=== PATIENT | male | born 1935 | race Caucasian/White ===

== ENCOUNTER 2020-04-14 11:04 | Outpatient (REF) | payer MEDICARE, SELFPAY ==
[2020-04-14 12:26] LABS: Prostate Specific Antigen 1.04 ng/mL (<0.05-4.0)
== END 2020-04-14 11:05 | disposition home or self-care (01) ==
LOC: HO.LNP 11:04
PROVIDERS: Visit Provider Urology
DX: C61 Malignant neoplasm of prostate (principal)
CPT/HCPCS: 84153

== ENCOUNTER → 2020-05-16 08:36 | Outpatient (BNVA) | payer MEDICARE, SELFPAY | PROVIDERS: PCP Internal Medicine; Referring Provider Internal Medicine; Visit Provider Urology | DX: C61 Malignant neoplasm of prostate (principal); R97.20 Elevated prostate specific antigen [PSA]; Z12.5 Encounter for screening for malignant neoplasm of prostate; Z98.890 Other specified postprocedural states | CPT/HCPCS: 99212 ==

== ENCOUNTER 2020-06-09 08:35 | Outpatient (REF) | payer MEDICARE, SELFPAY ==
[2020-06-09 11:16] LABS: Prostate Specific Antigen 1.72 ng/mL (<0.05-4.0)
[2020-06-13 11:38] LABS: Testosterone, Total 11 ng/dL (250-1100)
== END 2020-06-09 08:36 | disposition home or self-care (01) ==
LOC: HO.10HDL 08:35
PROVIDERS: Visit Provider Urology
DX: C61 Malignant neoplasm of prostate (principal)
CPT/HCPCS: 84153; 84403

== ENCOUNTER → 2020-07-01 10:30 | Outpatient (BNVA) | payer MEDICARE, SELFPAY | PROVIDERS: PCP Internal Medicine; Visit Provider Urology | DX: R97.21 Rising PSA following treatment for malignant neoplasm of prostate (principal); C61 Malignant neoplasm of prostate; Z79.899 Other long term (current) drug therapy | CPT/HCPCS: 96372; 99212; J9217 ==

== ENCOUNTER 2020-09-08 08:12 | Outpatient (REF) | payer MEDICARE, SELFPAY ==
[2020-09-08 11:56] LABS: Prostate Specific Antigen < 0.05 ng/mL (<0.05-4.0)
== END 2020-09-08 08:13 | disposition home or self-care (01) ==
LOC: HO.10HDL 08:12
PROVIDERS: Visit Provider Urology
DX: R97.21 Rising PSA following treatment for malignant neoplasm of prostate (principal)
CPT/HCPCS: 36415; 84153

== ENCOUNTER → 2020-10-30 10:19 | Outpatient (BNVA) | payer MEDICARE, SELFPAY | PROVIDERS: PCP Internal Medicine; Visit Provider Urology | DX: C61 Malignant neoplasm of prostate (principal); R97.21 Rising PSA following treatment for malignant neoplasm of prostate | CPT/HCPCS: 99212 ==

== ENCOUNTER 2021-01-27 09:23 | Outpatient (REF) | payer MEDICARE, SELFPAY ==
[2021-01-27 10:14] LABS: MANUAL DIFF FLAG NO
[2021-01-27 10:22] LABS: Basophils Percent Auto 0.5 % (0-2); Eosinophils Absolute Auto 0.3 X10*3/uL (0.0-0.4); Eosinophils Percent Auto 4.2 % (0-4); Hemoglobin 13.8 g/dl (14.0-18.0); Imm Gran Abs Auto 0.03 X10*3/uL (0.00-0.03); Imm Gran Pct Auto 0.5 % (0.0-0.4); Lymphocytes Absolute Auto 1.8 X10*3/uL (1.2-4.9); Lymphocytes Percent Auto 28.4 % (20-40); Mean Corpuscular HGB Conc 32.9 g/dl (31.0-36.0); Mean Corpuscular Hemoglobin 30.3 pg (27.0-33.0); Mean Corpuscular Volume 92.3 fL (80-98); Mean Platelet Volume 9.3 fL (9.4-12.4); Monocytes Absolute Auto 0.7 X10*3/uL (0.1-1.2); Monocytes Percent Auto 11.1 % (2-11); Neutrophils Absolute Auto 3.6 X10*3/uL (2.0-8.3); Neutrophils Percent Auto 55.3 % (45-73); Platelet Count 225 X10*3/uL (160-400); Red Blood Count 4.55 X10*6/uL (4.60-5.80); Red Cell Distribution Width 12.5 % (11.0-16.0); White Blood Count 6.5 X10*3/uL (4.8-10.8)
[2021-01-27 10:34] LABS: Estimated Average Glucose 137 mg/dL; Hemoglobin A1c % 6.4 %
[2021-01-27 10:50] LABS: Alanine Aminotransferase 14 U/L (0-40); Albumin Level 4.1 g/dL (3.5-5.0); Alkaline Phosphatase 66 U/L (39-117); Anion Gap 12 (12-20); Aspartate Amino Transferase 19 U/L (5-37); Bilirubin Total 1.7 mg/dL (0.0-1.0); Blood Urea Nitrogen 14 mg/dL (9-16); Calcium 9.7 mg/dL (8.4-10.2); Carbon Dioxide 29 mmol/L (22-29); Chloride 104 mmol/L (96-108); Cholesterol 186 mg/dL; Estimated Glomerular Filt Rate > 60; Glucose Random 99 mg/dL (60-115); Potassium 4.3 mmol/L (3.3-5.1); Sodium 141 mmol/L (135-145); Total Protein 6.9 g/dL (6.5-8.0)
[2021-01-27 11:09] LABS: Prostate Specific Antigen < 0.05 ng/mL (<0.05-4.0)
[2021-01-31 14:22] LABS: Testosterone, Total 10 ng/dL (250-1100)
== END 2021-01-27 09:24 | disposition home or self-care (01) ==
LOC: HO.10HDL 09:23
PROVIDERS: Urology; Visit Provider Internal Medicine
DX: Z12.5 Encounter for screening for malignant neoplasm of prostate (principal); R97.21 Rising PSA following treatment for malignant neoplasm of prostate; I10 Essential (primary) hypertension; E11.9 Type 2 diabetes mellitus without complications; C61 Malignant neoplasm of prostate
CPT/HCPCS: 36415; 80053; 82465; 83036; 84153; 84403; 85025

== ENCOUNTER 2021-02-11 08:39 | Outpatient (REF) | payer MEDICARE, SELFPAY ==
[2021-02-11 11:19] LABS: Prostate Specific Antigen < 0.05 ng/mL (<0.05-4.0)
[2021-02-15 19:55] LABS: Testosterone, Total 10 ng/dL (250-1100)
== END 2021-02-11 08:40 | disposition home or self-care (01) ==
LOC: HO.10HDL 08:39
PROVIDERS: Visit Provider Urology
DX: Z12.5 Encounter for screening for malignant neoplasm of prostate (principal); R97.21 Rising PSA following treatment for malignant neoplasm of prostate
CPT/HCPCS: 36415; 84153; 84403

== ENCOUNTER → 2021-02-27 09:51 | Outpatient (REF) | payer MEDICARE, SELFPAY ==
--- NOTE | ~2021-02-27 | NM_ITS ---
EXAMINATION: NM BONE SCAN OF THE WHOLE BODY CLINICAL INFORMATION: Malignant neoplasm of prostate. COMPARISON: The previous bone scan dated 06/16/2016 is available for comparison. No recent radiographs are available for comparison. TECHNIQUE: Multiple gamma scintillation camera images of the whole body were performed 3 hours following the intravenous administration of 25 mCi Tc-99m MDP. FINDINGS: In the head, no significant abnormalities are present. Slight prominence of the right frontal skull is likely due to hyperostosis frontalis interna. In the thoracic cage and upper extremities, there is moderately increased activity in the right sternoclavicular joint. There is minimally increased activity in the acromioclavicular joints bilaterally and the left sternoclavicular joint. In the spine, a minimal thoracolumbar scoliosis with lumbar convexity to the left is noted. No foci of abnormal activity are present in the spine. In the pelvis, no significant abnormalities are present. In the lower extremities, well-healed bilateral total knee prostheses are noted. Minimally increased activity is present in a small focus in the medial aspect of the right ankle and there is very mildly increased activity in the proximal feet bilaterally. No other definite bony abnormalities are noted. The urinary bladder and faint visualization of both kidneys are noted. NM/NM bone scan whole body IMPRESSION: Prominent abnormality in the right sternoclavicular joint is present and is likely arthritic or traumatic in etiology. Because of the intensity, a solitary metastasis cannot be entirely excluded. Correlation with plain radiographs is recommended for initial follow-up. A few additional minimal nonspecific abnormalities are noted as described above and these are all likely arthritic or traumatic in etiology. None of these abnormalities is strongly suspicious for metastatic disease.
== END ==
LOC: HO.NUCMED 09:51
PROVIDERS: PCP Internal Medicine; Visit Provider Urology
DX: C61 Malignant neoplasm of prostate (principal); C79.51 Secondary malignant neoplasm of bone; R97.21 Rising PSA following treatment for malignant neoplasm of prostate
CPT/HCPCS: 78306; A9503

== ENCOUNTER → 2021-03-12 10:18 | Outpatient (BNVA) | payer MEDICARE, SELFPAY | PROVIDERS: Visit Provider Urology | DX: C61 Malignant neoplasm of prostate (principal); R97.21 Rising PSA following treatment for malignant neoplasm of prostate | CPT/HCPCS: 96402; 99212; J9217 ==

== ENCOUNTER 2021-05-15 08:00 | Outpatient (REF) | payer MEDICARE, SELFPAY ==
[2021-05-15 11:14] LABS: Prostate Specific Antigen < 0.05 ng/mL (<0.05-4.0)
[2021-05-21 13:51] LABS: Testosterone, Total <1 ng/dL (250-1100)
== END 2021-05-15 08:01 | disposition home or self-care (01) ==
LOC: HO.10HDL 08:00
PROVIDERS: Visit Provider Urology
DX: Z12.5 Encounter for screening for malignant neoplasm of prostate (principal); R97.21 Rising PSA following treatment for malignant neoplasm of prostate
CPT/HCPCS: 36415; 84153; 84403

== ENCOUNTER 2021-05-25 07:46 | Outpatient (REF) | payer MEDICARE, SELFPAY ==
[2021-05-25 10:21] LABS: MANUAL DIFF FLAG NO
[2021-05-25 10:27] LABS: Basophils Percent Auto 0.2 % (0-2); Eosinophils Absolute Auto 0.1 X10*3/uL (0.0-0.4); Eosinophils Percent Auto 0.8 % (0-4); Hematocrit 42.3 % (42.0-52.0); Hemoglobin 13.9 g/dl (14.0-18.0); Imm Gran Abs Auto 0.09 X10*3/uL (0.00-0.03); Imm Gran Pct Auto 0.9 % (0.0-0.4); Lymphocytes Absolute Auto 1.7 X10*3/uL (1.2-4.9); Lymphocytes Percent Auto 17.5 % (20-40); Mean Corpuscular HGB Conc 32.9 g/dl (31.0-36.0); Mean Corpuscular Hemoglobin 29.8 pg (27.0-33.0); Mean Corpuscular Volume 90.8 fL (80.0-98.0); Mean Platelet Volume 9.6 fL (9.4-12.4); Monocytes Percent Auto 9.9 % (2-11); Neutrophils Percent Auto 70.7 % (45-73); Platelet Count 256 X10*3/uL (160-400); Red Blood Count 4.66 X10*6/uL (4.60-5.80); Red Cell Distribution Width 12.3 % (11.0-16.0); White Blood Count 9.9 X10*3/uL (4.8-10.8)
[2021-05-25 11:01] LABS: Estimated Average Glucose 140 mg/dL; Hemoglobin A1c % 6.5 %
[2021-05-25 11:05] LABS: Alanine Aminotransferase 13 U/L (0-40); Albumin Level 3.9 g/dL (3.5-5.0); Alkaline Phosphatase 66 U/L (39-117); Anion Gap 11 (12-20); Aspartate Amino Transferase 12 U/L (5-37); Bilirubin Total 1.4 mg/dL (0.0-1.0); Blood Urea Nitrogen 19 mg/dL (9-16); Calcium 8.7 mg/dL (8.4-10.2); Carbon Dioxide 26 mmol/L (22-29); Chloride 105 mmol/L (96-108); Cholesterol 145 mg/dL; Estimated Glomerular Filt Rate > 60; Glucose Fasting 100 mg/dL (60-99); HDL Cholesterol 49 mg/dL; LDL Cholesterol Calculated 77 mg/dl; Potassium 4.2 mmol/L (3.3-5.1); Sodium 138 mmol/L (135-145); Total Protein 6.4 g/dL (6.5-8.0); Triglycerides 97 mg/dL
[2021-05-25 11:07] LABS: Creatinine Urine 84.89 mg/dL; Microalbum/Creatinine Ratio Ur 11.7 ug/mg cr
== END 2021-05-25 07:47 | disposition home or self-care (01) ==
LOC: HO.10HDL 07:46
PROVIDERS: Visit Provider Internal Medicine
DX: E11.9 Type 2 diabetes mellitus without complications (principal); I10 Essential (primary) hypertension; C61 Malignant neoplasm of prostate
CPT/HCPCS: 36415; 80053; 80061; 82043; 83036; 85025

== ENCOUNTER → 2021-06-17 08:43 | Outpatient (BNVA) | payer MEDICARE, SELFPAY | PROVIDERS: PCP Internal Medicine; Visit Provider Urology | DX: R97.21 Rising PSA following treatment for malignant neoplasm of prostate (principal); C61 Malignant neoplasm of prostate | CPT/HCPCS: Q3014 ==

== ENCOUNTER 2021-09-15 08:01 | Outpatient (REF) | payer MEDICARE, SELFPAY ==
--- NOTE | ~2021-09-15 | MM_ITS ---
EXAMINATION: BONE DENSITOMETRY CLINICAL INDICATION: Osteopenia. COMPARISON: This is the patient's baseline examination. TECHNIQUE: Using a [employer] DXA System (software version: 13.1) manufactured by [employer], dual-energy x-ray absorptiometry was performed of the lumbar spine and left hip. The images are of good technical quality. Summary results are attached. FINDINGS: AP SPINE L1-L4: BMD 1.059 g/cm2, Z-score -1.3, T-score -1.3, osteopenia. LEFT FEMUR, NECK: BMD 0.657 g/cm2, Z-score -1.9, T-score -3.2, osteoporosis. LEFT FEMUR, TOTAL: BMD 0.728 g/cm2, Z-score -1.6, T-score -2.6, osteoporosis. IDENTIFIED RISK FACTORS: Glucocorticoids (chronic). HISTORY OF FRACTURE: None listed. MEDICATIONS: None listed. MM/XR DEXA axial skeleton IMPRESSION: 1. DIAGNOSIS: Osteoporosis based on the lowest T-score value of -3.2 in the femoral neck applying World Health Organization criteria. 2. 10-YEAR FRACTURE RISK PREDICTION, FRAX: According to the guidelines, FRAX calculation should only be performed on patients in the osteopenia bone density category. Therefore, FRAX was not performed on this patient. 3. Treatment Recommendations: NOF guidelines recommend consideration for treatment in postmenopausal women and men age 50 and older presenting with the following: -A hip or vertebral (clinical or morphometric) fracture. -T-score less than or equal to -2.5 at the femoral neck or spine after appropriate evaluation to exclude secondary causes. -Low bone mass at the hip or spine and a 10-year fracture probability by FRAX of greater than or equal to 3% for hip fracture or greater than or equal to 20% for major osteoporotic fracture based on the [place] adapted WHO algorithm. 4. Other Recommendations: All treatment decisions require clinical judgment and consideration of individual patient factors, including patient preferences, comorbidities, previous drug use, risk factors not captured in the FRAX model (e.g. frailty, falls, vitamin D deficiency, increased bone turnover, interval significant decline in bone density) and possible under or overestimation of fracture risk by FRAX. Additional medical evaluation for secondary cause of low bone mineral density may be appropriate. FUTURE SCAN RECOMMENDATION: People with diagnosed cases of osteoporosis or at high risk for fracture should have regular bone mineral density tests. For patients eligible for Medicare, routine testing is allowed once every 2 years. The testing frequency can be increased to one year for patients who have rapidly progressing disease, those who are receiving or discontinuing medical therapy to restore bone mass, or have additional risk factors.
== END 2021-09-15 08:02 | disposition home or self-care (01) ==
LOC: HO.MAMMO 08:01
PROVIDERS: Visit Provider Urology
DX: Z13.820 Encounter for screening for osteoporosis (principal); M85.80 Other specified disorders of bone density and structure, unspecified site; M81.0 Age-related osteoporosis without current pathological fracture; R97.21 Rising PSA following treatment for malignant neoplasm of prostate; E27.49 Other adrenocortical insufficiency
CPT/HCPCS: 77080

== ENCOUNTER 2021-09-21 07:46 | Outpatient (REF) | payer MEDICARE, SELFPAY ==
[2021-09-21 11:28] LABS: Prostate Specific Antigen < 0.05 ng/mL (<0.05-4.0)
[2021-09-27 09:27] LABS: Testosterone, Total <1 ng/dL (250-1100)
== END 2021-09-21 07:47 | disposition home or self-care (01) ==
LOC: HO.10HDL 07:46
PROVIDERS: Visit Provider Urology
DX: Z12.5 Encounter for screening for malignant neoplasm of prostate (principal); R97.21 Rising PSA following treatment for malignant neoplasm of prostate
CPT/HCPCS: 36415; 84153; 84403

== ENCOUNTER → 2021-10-08 10:08 | Outpatient (BNVA) | payer MEDICARE, SELFPAY | PROVIDERS: PCP Internal Medicine; Visit Provider Urology | DX: C61 Malignant neoplasm of prostate (principal) | CPT/HCPCS: 96372; 96402; 99212; J0897; J9217 ==

== ENCOUNTER 2021-11-23 12:23 | Outpatient (REF) | payer MEDICARE, SELFPAY ==
[2021-11-23 13:33] LABS: MANUAL DIFF FLAG NO
[2021-11-23 13:35] LABS: Basophils Percent Auto 0.4 % (0-2); Eosinophils Absolute Auto 0.1 X10*3/uL (0.0-0.4); Eosinophils Percent Auto 1.4 % (0-4); Hematocrit 40.6 % (42.0-52.0); Hemoglobin 13.1 g/dl (14.0-18.0); Imm Gran Abs Auto 0.05 X10*3/uL (0.00-0.03); Imm Gran Pct Auto 0.6 % (0.0-0.4); Lymphocytes Absolute Auto 1.6 X10*3/uL (1.2-4.9); Lymphocytes Percent Auto 18.4 % (20-40); Mean Corpuscular HGB Conc 32.3 g/dl (31.0-36.0); Mean Corpuscular Hemoglobin 30.4 pg (27.0-33.0); Mean Corpuscular Volume 94.2 fL (80.0-98.0); Mean Platelet Volume 9.8 fL (9.4-12.4); Monocytes Absolute Auto 0.7 X10*3/uL (0.1-1.2); Monocytes Percent Auto 7.9 % (2-11); Neutrophils Absolute Auto 6.1 x10*3/uL (2.0-8.3); Neutrophils Percent Auto 71.3 % (45-73); Platelet Count 207 X10*3/uL (160-400); Red Blood Count 4.31 X10*6/uL (4.60-5.80); Red Cell Distribution Width 12.9 % (11.0-16.0); White Blood Count 8.5 X10*3/uL (4.8-10.8)
[2021-11-23 14:11] LABS: Alanine Aminotransferase 15 U/L (0-40); Albumin Level 3.9 g/dL (3.5-5.0); Alkaline Phosphatase 48 U/L (39-117); Anion Gap 13 (12-20); Aspartate Amino Transferase 14 U/L (5-37); Bilirubin Total 2.3 mg/dL (0.0-1.0); Blood Urea Nitrogen 14 mg/dL (9-16); Calcium 9.2 mg/dL (8.4-10.2); Carbon Dioxide 28 mmol/L (22-29); Chloride 105 mmol/L (96-108); Estimated Glomerular Filt Rate > 60; Glucose Random 134 mg/dL (60-115); Magnesium 2.1 mg/dL (1.6-2.6); Potassium 4.4 mmol/L (3.3-5.1); Sodium 142 mmol/L (135-145); Total Protein 6.7 g/dL (6.5-8.0)
[2021-11-23 14:17] LABS: Free T4 (Free Thyroxine) 0.93 ng/dL (0.71-1.85); Thyroid Stimulating Hormone 0.44 uIU/mL (0.32-4.0)
[2021-11-24 09:57] LABS: Lyme Abs Screen <0.90 index
== END 2021-11-23 12:24 | disposition home or self-care (01) ==
LOC: HO.10HDL 12:23
PROVIDERS: Visit Provider Internal Medicine
DX: I48.91 Unspecified atrial fibrillation (principal); I10 Essential (primary) hypertension; T14.8XXD Other injury of unspecified body region, subsequent encounter; W57.XXXD Bitten or stung by nonvenomous insect and other nonvenomous arthropods, subsequent encounter
CPT/HCPCS: 36415; 80053; 83735; 84439; 84443; 85025; 86617; 86618

== ENCOUNTER 2021-12-29 08:14 | Outpatient (REF) | payer MEDICARE, SELFPAY ==
[2021-12-29 10:02] LABS: Prostate Specific Antigen < 0.05 ng/mL (<0.05-4.0)
[2022-01-05 09:52] LABS: Testosterone, Total <1 ng/dL (250-1100)
== END 2021-12-29 08:15 | disposition home or self-care (01) ==
LOC: HO.10HDL 08:14
PROVIDERS: Visit Provider Urology
DX: Z12.5 Encounter for screening for malignant neoplasm of prostate (principal); C61 Malignant neoplasm of prostate; N40.1 Benign prostatic hyperplasia with lower urinary tract symptoms; N13.8 Other obstructive and reflux uropathy
CPT/HCPCS: 36415; 84153; 84403

== ENCOUNTER → 2022-01-07 10:07 | Outpatient (BNVA) | payer MEDICARE, SELFPAY | PROVIDERS: PCP Internal Medicine; Visit Provider Urology | DX: C61 Malignant neoplasm of prostate (principal); R97.21 Rising PSA following treatment for malignant neoplasm of prostate; E29.1 Testicular hypofunction; M81.8 Other osteoporosis without current pathological fracture; T38.7X5A Adverse effect of androgens and anabolic congeners, initial encounter | CPT/HCPCS: 99212 ==

== ENCOUNTER 2022-03-17 09:33 | Outpatient (REF) | payer MEDICARE, SELFPAY ==
[2022-03-17 11:56] LABS: Prostate Specific Antigen < 0.05 ng/mL (<0.05-4.0)
[2022-03-24 07:16] LABS: Testosterone, Total <1 ng/dL (250-1100)
== END 2022-03-17 09:34 | disposition home or self-care (01) ==
LOC: HO.10HDL 09:33
PROVIDERS: Visit Provider Urology
DX: Z12.5 Encounter for screening for malignant neoplasm of prostate (principal); E29.1 Testicular hypofunction; T38.7X5A Adverse effect of androgens and anabolic congeners, initial encounter; M81.8 Other osteoporosis without current pathological fracture
CPT/HCPCS: 36415; 84153; 84403

== ENCOUNTER → 2022-04-06 08:34 | Outpatient (BNVA) | payer MEDICARE, SELFPAY | PROVIDERS: PCP Internal Medicine; Referring Provider Internal Medicine; Visit Provider Internal Medicine | DX: I48.19 Other persistent atrial fibrillation (principal); I10 Essential (primary) hypertension; R29.6 Repeated falls | CPT/HCPCS: 93005; 99202 ==

== ENCOUNTER 2022-04-12 08:26 | Outpatient (REF) | payer MEDICARE, SELFPAY ==
[2022-04-12 10:57] LABS: Estimated Average Glucose 151 mg/dL; Hemoglobin A1c % 6.9 %
[2022-04-12 11:06] LABS: Alanine Aminotransferase 12 U/L (0-40); Albumin Level 4.1 g/dL (3.5-5.0); Alkaline Phosphatase 66 U/L (39-117); Anion Gap 14 (12-20); Aspartate Amino Transferase 10 U/L (5-37); Bilirubin Total 2.1 mg/dL (0.0-1.0); Blood Urea Nitrogen 19 mg/dL (9-16); Calcium 9.2 mg/dL (8.4-10.2); Carbon Dioxide 28 mmol/L (22-29); Chloride 102 mmol/L (96-108); Estimated Glomerular Filt Rate > 60; Glucose Random 208 mg/dL (60-115); Potassium 4.4 mmol/L (3.3-5.1); Sodium 140 mmol/L (135-145); Total Protein 6.4 g/dL (6.5-8.0)
[2022-04-12 11:13] LABS: B Type Natriuretic Peptide 123 pg/mL (<100)
== END 2022-04-12 08:27 | disposition home or self-care (01) ==
LOC: HO.10HDL 08:26
PROVIDERS: Visit Provider Internal Medicine
DX: I48.91 Unspecified atrial fibrillation (principal); R60.0 Localized edema; I10 Essential (primary) hypertension; R73.9 Hyperglycemia, unspecified; R06.00 Dyspnea, unspecified
CPT/HCPCS: 36415; 80053; 83036; 83880

== ENCOUNTER → 2022-04-13 08:48 | Outpatient (BNVA) | payer MEDICARE, SELFPAY | PROVIDERS: PCP Internal Medicine; Visit Provider Urology | DX: C61 Malignant neoplasm of prostate (principal); M81.8 Other osteoporosis without current pathological fracture; T38.7X5A Adverse effect of androgens and anabolic congeners, initial encounter | CPT/HCPCS: 96372; 96402; J0897; J9217 ==

== ENCOUNTER 2022-04-25 03:20 | Inpatient (IN) | payer MEDICARE, SELFPAY ==
[2022-04-25] VITALS (9 sets, daily range): BP systolic 108–138; BP diastolic 55–70; PULSE 82–109; RESP 16–38; TEMP 36.6–37.6; O2SAT 90–97; BMI 37.1
--- NOTE | ~2022-04-25 | XR_ITS ---
EXAMINATION: XR CHEST CLINICAL INFORMATION: Dyspnea COMPARISON: 09/21/2011 TECHNIQUE: Frontal view of the chest was obtained. FINDINGS: Lung volumes are symmetric. No focal consolidation is seen. No evidence of pneumothorax. Redemonstrated left basilar pleural thickening; small superimposed effusion is difficult to exclude. Cardiac size is within normal limits. Calcification is present at the aortic arch. No acute osseous findings are seen. XR/XR chest 1V IMPRESSION: No focal consolidation identified. Small left pleural effusion is difficult to exclude.
--- NOTE | ~2022-04-25 | US_ITS ---
EXAMINATION: BILATERAL LOWER EXTREMITY VENOUS ULTRASOUND CLINICAL INFORMATION: Bilateral leg pain and swelling. COMPARISON: None TECHNIQUE: Doppler spectral analysis and color flow Doppler imaging was performed of the lower extremities. Compression and augmentation maneuvers were performed. FINDINGS: The right and left common femoral vein, greater saphenous vein takeoff, femoral vein, and popliteal vein are normally compressible with normal augmentation responses and phasic changes seen with Doppler imaging. 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 The midcalf peroneal and posterior tibial veins in the right calf and the posterior tibial veins in the left calf are patent as well. The peroneal veins in the left calf are not seen given extensive soft tissue edema. There is a complex 3.8 x 1.1 x 2.6 cm fluid collection with associated curvilinear echogenic shadowing calcification, perhaps representing a chronic partially calcified popliteal cyst. Color Doppler imaging, no color flow is demonstrated within this structure and no obvious communication to vessels is demonstrated to suspect an aneurysm. There is also complex appearing 5.2 x 1 x 3.5 cm collection in the left popliteal fossa, likely a popliteal cyst. US/US venous duplex LE IMPRESSION: 1. No evidence of deep venous thrombosis in the right lower extremity. 2. No evidence of deep venous fibrosis in the left lower extremity down to the popliteal level. In the calf, the peroneal veins could not be seen. Depending on clinical circumstances, repeat DVT study in 7-10 days could be performed to exclude proximal clot propagation from a nonvisualized calf vein. 3. Bilateral complex appearing fluid collections are seen in the popliteal fossa, presumably representing popliteal cysts. The finding in the right popliteal fossa has associated curvilinear shadowing calcification. Close clinical correlation is requested.
--- NOTE | ~2022-04-25 | CT_ITS ---
EXAMINATION: CT ABDOMEN AND PELVIS WITHOUT CONTRAST CLINICAL INFORMATION: Portal hypertension . COMPARISON: None TECHNIQUE: Multidetector volumetric imaging was performed from the superior aspect of the liver through the pubic symphysis. Sagittal and coronal reformatted images were obtained on the technologist's workstation. This CT examination was performed using dose optimization techniques as appropriate, variously including the following: *Automated exposure control *Adjustment of mA and/or kV according to patient size (this includes techniques or standardized protocols for targeted exams where dose is matched to indication/reason for exam; i.e. extremities or head) *Use of iterative reconstruction technique DLP: 796 mGy-cm FINDINGS: LUNG BASES: Minimal atelectatic changes seen in the left lung base. The heart size is normal. LIVER, GALLBLADDER, AND BILIARY TREE: The liver is normal in size, shape, and attenuation. There is a hypodense 1.2 cm lesion left hepatic lobe. The gallbladder is unremarkable with no evidence of radiopaque gallstones, gallbladder wall thickening, or obvious pericholecystic inflammatory changes. PANCREAS: Unremarkable. SPLEEN: Unremarkable. ADRENAL GLANDS: Unremarkable. KIDNEYS AND URETERS: The kidneys are normal in size, shape, and attenuation. No hydronephrosis, hydroureter, or calculi seen. No perinephric stranding. BLADDER: Unremarkable. GASTROINTESTINAL TRACT: The small and large bowel are unremarkable. The appendix is unremarkable. ABDOMINAL WALL: No significant hernia is appreciated. LYMPH NODES: Normal. VASCULAR: Mild undistorted changes of abdominal aorta without aneurysmal dilatation. No varicose veins are visualized. PELVIC VISCERA: The prostate gland is normal size with peripheral calcification. OSSEOUS STRUCTURES: Degenerative disc changes throughout lower dorsal and lumbar spine sparing the L5-S1 disc level. No aggressive lytic or sclerotic process seen. CT/CT abdomen pelvis wo IV con IMPRESSION: No acute intra-abdominal process seen. No varicosities seen in the abdomen to suspect any elevated portal hypertension. Probable cyst left hepatic lobe. Fleischner guidelines were followed.
--- NOTE | 2022-04-25 03:38 | ECG_ITS ---
Test Reason : dyspnea Blood Pressure : / mmHG Vent. Rate : 104 BPM Atrial Rate : 000 BPM P-R Int : 000 ms QRS Dur : 094 ms QT Int : 312 ms P-R-T Axes : 000 024 -14 degrees QTc Int : 410 ms Atrial fibrillation with rapid ventricular response with premature ventricular or aberrantly conducted complexes RSR' or QR pattern in V1 suggests right ventricular conduction delay Abnormal ECG When compared with ECG of 18-OCT-2014 12:34, Atrial fibrillation has replaced Sinus rhythm Referred By: Dulce Gudino Electronically Signed By:KAREN FLOREZ MD
--- NOTE | 2022-04-25 03:40 | ED_ITS ---
HPI - Extremity Problem General Chief complaint: General Medical Stated complaint: leg swelling Time Seen by Provider: 04/25/22 03:21 Source: patient Mode of arrival: EMS Limitations: other (poor historian) History of Present Illness HPI Narrative: 87 yo male from home with hx of PAF not on thinners due to frequent falls, HTN, prostate cancer, here with c/o 2 weeks of leg swelling which is now making it hard for him to get around. Patient is not on diuretic at home. Right leg is now reddened and hot to touch. He saw cardiology on 04/06 and had outpatient ECHO pending last ECHO was in January at [facility] due to syncope but it was technically difficult and suboptimal so it only stated that LVEF was mildly reduced. He notes his legs have never swelled this way before. MD Complaint: extremity pain and extremity swelling Onset (ago): week(s) (2) Location: left, right and lower extremity Quality: aching, dull and constant Radiation: none Relieving factors: immobilization Exacerbating factors: weight bearing, walking and palpation Associated symptoms: denies other symptoms Related Data Home Medications Medication Instructions Recorded Confirmed losartan 50 mg tablet 50 mg PO DAILY 05/16/20 04/06/22 aspirin 81 mg tablet,delayed 81 mg PO DAILY 04/06/22 04/06/22 release Previous Rx's Medication Instructions Recorded abiraterone 500 mg tablet 500 mg PO DAILY 90 days #90 tabs 11/17/21 finasteride 5 mg tablet 5 mg PO DAILY #90 tabs 12/17/21 calcium citrate 315 mg 2 tab PO BID 90 days #360 tabs 01/07/22 calcium-vitamin D3 6.25 mcg (250 unit) tablet (Citracal + Vitamin D Maximum) prednisone 5 mg tablet 5 mg PO BID 90 days #180 tabs 04/22/22 Allergies Allergy/AdvReac Type Severity Reaction Status Date / Time No Known Allergies Allergy Verified 04/06/22 08:55 [No Known Allergies*] Review of Systems Review of Systems: Constitutional : No Fever, No Chills ENT/Mouth : No Ear Pain, No Hoarseness, No sore throat Eyes: No Eye Pain, No Swelling, No Redness, No Foreign Body Cardiovascular : No Chest Pain, No SOB, pos edema Respiratory : No Cough, No Dyspnea Gastrointestinal : No Nausea, No Vomiting, No Diarrhea, No abdominal Pain Genitourinary : No Dysuria, No Hematuria Musculoskeletal : no joint pain, No Myalgias, No Joint Swelling Skin : No Skin lacerations, pos rash, pos weeping lesions Neuro : No Weakness, No Numbness, No Loss of Consciousness, No Dizziness, No Headache Psych : No Anxiety/Panic, No Depression Heme/Lymph: no easy bruising, no Lymphadenopathy Endocrine : No Polyuria, No Polydipsia All other systems reviewed and are negative [facility] Past Medical History Attestation statement: The following information was validated with the patient. Medical History Basal cell carcinoma Elevated blood pressure reading Essential hypertension Hx of bladder cancer Prostate cancer Recurrent falls Skin lesion of back Urethral stricture Surgical History History of knee replacement History of surgery Family History Family History (Updated 04/06/22 @ 08:56 by Isamar Ignacio [facility]) Father No problems noted. Mother No problems noted. Social History Social History Patient Tobacco Use Status: Never used Tobacco Advance Directives: No Physical Exam Vital Signs: Vital Signs: Last Vital Signs Temp 98.4 F 04/25/22 05:51 Pulse 100 04/25/22 05:51 Resp 35 H 04/25/22 05:51 BP 122/57 L 04/25/22 05:51 Pulse Ox 94 04/25/22 05:51 O2 Del Method 04/25/22 05:51 BMI result Body Mass Index 37.1 Appearance: Alert. Oriented X3. No acute distress. Eyes: Pupils equal, round and reactive to light. ENT: Pharynx normal. Neck: Normal inspection. Neck supple. CVS: tachycardic/irregular heart rate and rhythm. Pulses normal. Respiratory: No respiratory distress. Breath sounds diminished at the bases. Abdomen: Soft and non-tender. Skin: Skin warm and dry. Normal skin color. Extremities: 3+ pitting edema bilateral lower extremities. warmth and erythema to R leg anteriorly and medially on leg, weeping lesions noted on inner aspect of medical calf Neuro: Oriented X 3. No motor deficit. No sensory deficit. Course Course Course Narrative: signed out to Dr. Lin pending DVT studies but hospitalist made aware of pending admission as well 710am MDM - Extremity (Nontraumatic) MDM Narrative Medical decision making narrative: 87 yo male from home with hx of PAF not on thinners due to frequent falls, HTN, prostate cancer comes to ED with c/o LE swelling and redness to right leg - it is warm to touch and red appears cellulitis likely infected weeping lesion on top of venous stasis dermatitis. He has LE swelling suspected low EF from prior ECHO back in January he was due for ECHO through [facility] cardiology. Will need labs, CXR, EKG, BNP. Anticipate admission. DVT studies ordered. Lab Data Result diagrams: 04/25/22 04:12 04/25/22 04:11 Labs: Lab Results 04/25/22 04/25/22 04/25/22 Range/Units 04:11 04:11 04:11 WBC (4.8-10.8) X10*3/uL RBC (4.60-5.80) X10*6/uL Hgb (14.0-18.0) g/dl Hct (42.0-52.0) % MCV (80.0-98.0) fL MCH (27.0-33.0) pg MCHC (31.0-36.0) g/dl RDW (11.0-16.0) % Plt Count (160-400) X10*3/uL MPV (9.4-12.4) fL Immature Gran % (Auto) (0.0-0.4) % Neut % (Auto) (45-73) % Lymph % (Auto) (20-40) % [place] % (Auto) (2-11) % Eos % (Auto) (0-4) % Baso % (Auto) (0-2) % Lymph # (Auto) (1.2-4.9) X10*3/uL [place] # (Auto) (0.1-1.2) X10*3/uL Eos # (Auto) (0.0-0.4) X10*3/uL Baso # (Auto) (0.0-0.2) X10*3/uL Abs Immat Gran (auto) (0.00-0.03) X10*3/uL Absolute Neuts (auto) (2.0-8.3) x10*3/uL Absolute Nucleated RBC (0.0-0.012) X10*3/uL Nucleated RBC % (auto) (0.0-0.2) /100WBC PT (10.0-13.1) SEC INR (0.9-1.1) APTT (26.0-36.4) SEC Sodium 134 L (135-145) mmol/L Potassium 3.8 (3.3-5.1) mmol/L Chloride 96 (96-108) mmol/L Carbon Dioxide 25 (22-29) mmol/L Anion Gap 17 (12-20) BUN 23 H (9-16) mg/dL Creatinine 1.02 (0.5-1.4) mg/dL Estim Creat Clear Calc 57.7 Estimated GFR > 60 Random Glucose 154 H (60-115) mg/dL Lactic Acid 2.0 (0.5-2.0) mmol/L Calcium 8.6 D (8.4-10.2) mg/dL Magnesium 1.7 (1.6-2.6) mg/dL Total Bilirubin 2.5 H (0.0-1.0) mg/dL Direct Bilirubin 0.6 H (0.0-0.5) mg/dL AST 14 (5-37) U/L ALT 10 (0-40) U/L Alkaline Phosphatase 50 D (39-117) U/L Troponin I High Sens (<3.5-35.0) ng/L B-Natriuretic Peptide (<100) pg/mL Total Protein 5.8 L (6.5-8.0) g/dL Albumin 3.6 (3.5-5.0) g/dL Lipase 7 L (8-78) U/L TSH 0.59 (0.32-4.0) uIU/mL Urine Color Urine Appearance Urine pH (5.0-9.0) Ur Specific [place] (1.005-1.025) Urine Protein (Neg-Trace) mg/dL Urine Glucose (UA) (Negative) mg/dL Urine Ketones (Negative) mg/dL Urine Blood (Negative) Urine Nitrite (Negative) Ur Leukocyte Esterase (Negative) Urine RBC (0-2) /HPF Urine WBC (0-5) /HPF Ur Squamous Epith Cells (0-2) /HPF Urine Bacteria (None Seen) Hyaline Casts (0-2) /LPF COVID-19 ([facility]) Negative (Negative) COVID-19 Clin Com See Note 04/25/22 04/25/22 04/25/22 Range/Units 04:12 04:12 04:12 WBC 14.8 H (4.8-10.8) X10*3/uL RBC 4.69 (4.60-5.80) X10*6/uL Hgb 13.7 L (14.0-18.0) g/dl Hct 42.7 (42.0-52.0) % MCV 91.0 (80.0-98.0) fL MCH 29.2 (27.0-33.0) pg MCHC 32.1 (31.0-36.0) g/dl RDW 13.5 (11.0-16.0) % Plt Count 145 L D (160-400) X10*3/uL MPV 8.9 L (9.4-12.4) fL Immature Gran % (Auto) 0.8 H (0.0-0.4) % Neut % (Auto) 88.7 H (45-73) % Lymph % (Auto) 5.1 L (20-40) % [place] % (Auto) 4.9 (2-11) % Eos % (Auto) 0.2 (0-4) % Baso % (Auto) 0.3 (0-2) % Lymph # (Auto) 0.8 L (1.2-4.9) X10*3/uL [place] # (Auto) 0.7 (0.1-1.2) X10*3/uL Eos # (Auto) 0.0 (0.0-0.4) X10*3/uL Baso # (Auto) 0.0 (0.0-0.2) X10*3/uL Abs Immat Gran (auto) 0.12 H (0.00-0.03) X10*3/uL Absolute Neuts (auto) 13.1 H (2.0-8.3) x10*3/uL Absolute Nucleated RBC 0.000 (0.0-0.012) X10*3/uL Nucleated RBC % (auto) 0.0 (0.0-0.2) /100WBC PT 16.9 H (10.0-13.1) SEC INR 1.5 H (0.9-1.1) APTT 31.4 (26.0-36.4) SEC Sodium (135-145) mmol/L Potassium (3.3-5.1) mmol/L Chloride (96-108) mmol/L Carbon Dioxide (22-29) mmol/L Anion Gap (12-20) BUN (9-16) mg/dL Creatinine (0.5-1.4) mg/dL Estim Creat Clear Calc Estimated GFR Random Glucose (60-115) mg/dL Lactic Acid (0.5-2.0) mmol/L Calcium (8.4-10.2) mg/dL Magnesium (1.6-2.6) mg/dL Total Bilirubin (0.0-1.0) mg/dL Direct Bilirubin (0.0-0.5) mg/dL AST (5-37) U/L ALT (0-40) U/L Alkaline Phosphatase (39-117) U/L Troponin I High Sens 23.4 (<3.5-35.0) ng/L B-Natriuretic Peptide 135 H (<100) pg/mL Total Protein (6.5-8.0) g/dL Albumin (3.5-5.0) g/dL Lipase (8-78) U/L TSH (0.32-4.0) uIU/mL Urine Color Urine Appearance Urine pH (5.0-9.0) Ur Specific [place] (1.005-1.025) Urine Protein (Neg-Trace) mg/dL Urine Glucose (UA) (Negative) mg/dL Urine Ketones (Negative) mg/dL Urine Blood (Negative) Urine Nitrite (Negative) Ur Leukocyte Esterase (Negative) Urine RBC (0-2) /HPF Urine WBC (0-5) /HPF Ur Squamous Epith Cells (0-2) /HPF Urine Bacteria (None Seen) Hyaline Casts (0-2) /LPF COVID-19 ([facility]) (Negative) COVID-19 Clin Com 04/25/22 Range/Units 05:55 WBC (4.8-10.8) X10*3/uL RBC (4.60-5.80) X10*6/uL Hgb (14.0-18.0) g/dl Hct (42.0-52.0) % MCV (80.0-98.0) fL MCH (27.0-33.0) pg MCHC (31.0-36.0) g/dl RDW (11.0-16.0) % Plt Count (160-400) X10*3/uL MPV (9.4-12.4) fL Immature Gran % (Auto) (0.0-0.4) % Neut % (Auto) (45-73) % Lymph % (Auto) (20-40) % [place] % (Auto) (2-11) % Eos % (Auto) (0-4) % Baso % (Auto) (0-2) % Lymph # (Auto) (1.2-4.9) X10*3/uL [place] # (Auto) (0.1-1.2) X10*3/uL Eos # (Auto) (0.0-0.4) X10*3/uL Baso # (Auto) (0.0-0.2) X10*3/uL Abs Immat Gran (auto) (0.00-0.03) X10*3/uL Absolute Neuts (auto) (2.0-8.3) x10*3/uL Absolute Nucleated RBC (0.0-0.012) X10*3/uL Nucleated RBC % (auto) (0.0-0.2) /100WBC PT (10.0-13.1) SEC INR (0.9-1.1) APTT (26.0-36.4) SEC Sodium (135-145) mmol/L Potassium (3.3-5.1) mmol/L Chloride (96-108) mmol/L Carbon Dioxide (22-29) mmol/L Anion Gap (12-20) BUN (9-16) mg/dL Creatinine (0.5-1.4) mg/dL Estim Creat Clear Calc Estimated GFR Random Glucose (60-115) mg/dL Lactic Acid (0.5-2.0) mmol/L Calcium (8.4-10.2) mg/dL Magnesium (1.6-2.6) mg/dL Total Bilirubin (0.0-1.0) mg/dL Direct Bilirubin (0.0-0.5) mg/dL AST (5-37) U/L ALT (0-40) U/L Alkaline Phosphatase (39-117) U/L Troponin I High Sens (<3.5-35.0) ng/L B-Natriuretic Peptide (<100) pg/mL Total Protein (6.5-8.0) g/dL Albumin (3.5-5.0) g/dL Lipase (8-78) U/L TSH (0.32-4.0) uIU/mL Urine Color Yellow Urine Appearance Clear Urine pH 5.5 (5.0-9.0) Ur Specific [place] 1.015 (1.005-1.025) Urine Protein 30 (1+) H (Neg-Trace) mg/dL Urine Glucose (UA) Negative (Negative) mg/dL Urine Ketones Trace (Negative) mg/dL Urine Blood Negative (Negative) Urine Nitrite Negative (Negative) Ur Leukocyte Esterase Negative (Negative) Urine RBC 0-2 (0-2) /HPF Urine WBC 0-5 (0-5) /HPF Ur Squamous Epith Cells 0-2 (0-2) /HPF Urine Bacteria None Seen (None Seen) Hyaline Casts 0-2 (0-2) /LPF COVID-19 ([facility]) (Negative) COVID-19 Clin Com ECG Data Attestation EKG: I personally reviewed and interpreted this ECG as follows: ECG interpretation date: 04/25/22 ECG interpretation time: 04:20 Interpretation: Rate: 104 Rhythm: afib with RVR [place]: normal Normal QRS complex. ST T wave : nonspecific no TESSA, flattened t waves qTC: normal prior studies: no acute ischemia The study has been interpreted contemporaneously by me. Discharge Plan Discharge Clinical Impression: Leg edema Cellulitis Qualifiers: Site of cellulitis: extremity Site of cellulitis of extremity: lower extremity Laterality: right Qualified Code(s): L03.115 - Cellulitis of right lower limb Leukocytosis Qualifiers: Leukocytosis type: unspecified Qualified Code(s): D72.829 - Elevated white blood cell count, unspecified Patient Disposition: Admitted As Inpatient
[2022-04-25 04:21] LABS: Basophils Percent Auto 0.3 % (0-2); Eosinophils Percent Auto 0.2 % (0-4); Hematocrit 42.7 % (42.0-52.0); Hemoglobin 13.7 g/dl (14.0-18.0); Imm Gran Abs Auto 0.12 X10*3/uL (0.00-0.03); Imm Gran Pct Auto 0.8 % (0.0-0.4); Lymphocytes Absolute Auto 0.8 X10*3/uL (1.2-4.9); Lymphocytes Percent Auto 5.1 % (20-40); MANUAL DIFF FLAG NO; Mean Corpuscular HGB Conc 32.1 g/dl (31.0-36.0); Mean Corpuscular Hemoglobin 29.2 pg (27.0-33.0); Mean Platelet Volume 8.9 fL (9.4-12.4); Monocytes Absolute Auto 0.7 X10*3/uL (0.1-1.2); Monocytes Percent Auto 4.9 % (2-11); Neutrophils Absolute Auto 13.1 x10*3/uL (2.0-8.3); Neutrophils Percent Auto 88.7 % (45-73); Platelet Count 145 X10*3/uL (160-400); Red Blood Count 4.69 X10*6/uL (4.60-5.80); Red Cell Distribution Width 13.5 % (11.0-16.0); White Blood Count 14.8 X10*3/uL (4.8-10.8)
[2022-04-25 04:26] LABS: INTERNATIONAL NORM RATIO 1.5 (0.9-1.1); Prothrombin Time 16.9 SEC (10.0-13.1)
[2022-04-25 04:29] LABS: Partial Thromboplastin Time 31.4 SEC (26.0-36.4)
[2022-04-25 04:32] LABS: COVID-19 Test Negative (Negative)
[2022-04-25 04:36] LABS: Alanine Aminotransferase 10 U/L (0-40); Albumin Level 3.6 g/dL (3.5-5.0); Alkaline Phosphatase 50 U/L (39-117); Anion Gap 17 (12-20); Aspartate Amino Transferase 14 U/L (5-37); Bilirubin Direct 0.6 mg/dL (0.0-0.5); Bilirubin Total 2.5 mg/dL (0.0-1.0); Blood Urea Nitrogen 23 mg/dL (9-16); Calcium 8.6 mg/dL (8.4-10.2); Carbon Dioxide 25 mmol/L (22-29); Chloride 96 mmol/L (96-108); Creatinine Clr Calc Pharmacy 57.7; Estimated Glomerular Filt Rate > 60; Glucose Random 154 mg/dL (60-115); Lipase 7 U/L (8-78); Magnesium 1.7 mg/dL (1.6-2.6); Potassium 3.8 mmol/L (3.3-5.1); Sodium 134 mmol/L (135-145); Total Protein 5.8 g/dL (6.5-8.0)
[2022-04-25 04:40] LABS: B Type Natriuretic Peptide 135 pg/mL (<100); Troponin-I High Sensitivity 23.4 ng/L (<3.5-35.0)
[2022-04-25] MEDS: Furosemide 40 MG/4 ML VIAL IVPUSH (04:45)
[2022-04-25] MEDS: Piperacillin Sodium/Tazobactam 3.375 GM in 0.9 % Sodium Chloride 50 ML IV (04:46)
[2022-04-25 04:56] LABS: TSH reflex Free T4 0.59 uIU/mL (0.32-4.0)
[2022-04-25 06:02] LABS: Appearance Urine Clear; Color Urine Yellow; Glucose Urine UA Negative (Negative); Leukocyte Esterase Urine Negative (Negative); Nitrite Urine Negative (Negative); PH 5.5 (5.0-9.0); Specific Gravity - Urine 1.015 (1.005-1.025); UMIC TRIGGER UACC YES; Urine Blood Negative (Negative); Urine Ketones Trace mg/dL (Negative); Urine Protein 30 (1+) mg/dL (Neg-Trace)
[2022-04-25 06:07] LABS: Bacteria Urine None Seen (None Seen); Hyaline Casts Urine 0-2 /LPF (0-2); RBC Urine 0-2 /HPF (0-2); Squamous Epithelial Cell Urine 0-2 /HPF (0-2); WBC Urine 0-5 /HPF (0-5)
--- NOTE | 2022-04-25 07:55 | P.HPHOSP_ITS ---
History of Present Illness Date of Service: 04/25/22 Chief Complaint: leg edema, difficulty walking 87M with PMH of prostate cancer, bladder cancer, basal cell skin cancer, HTN, obesity, diet controlled DM, obesity, persistent afib, presented with leg edema. patient has notice worsening bilateral leg edema for about 1 week. this has made it difficult for him to ambulate, to the point where he can no longer walk at all so he came to ED. he denies any shortness of breath or orthopnea or chest pain. he has not had and fevers or chills. denies abdominal pain or distension. he was recently diagnosed with afib, in january 2022 echo showed mildly reduced EF, pulmonary HTN. he is not on anticoagulation or rate control meds. in ED patient in afib with mild RVR, labs significant for elevated LFTs - inr 1.5, tbili 2.5. platelets reduced at 145. wbc elevated to 14.8. Review of Systems Review of Systems: Constitutional: Denies fever, denies Chills Eyes: denies blurry vision ENT: denies sore throat CVS: denies chest pain Respiratory: Denies dyspnea GI: no abdominal pain : denies dysuria MSK: denies neck pain Skin: RLE erythema Neuro: denies specific motor weakness Psych: denies suicidal ideation Endocrine: denies heat/cold intolerance Hematologic: denies easy bleeding Allergy: denies hives PMFSH Medical History Basal cell carcinoma Elevated blood pressure reading Essential hypertension Hx of bladder cancer Prostate cancer Recurrent falls Skin lesion of back Urethral stricture Family History (Updated 04/06/22 @ 08:56 by HEIDE Mosher) Father No problems noted. Mother No problems noted. Surgical History History of knee replacement History of surgery Social History Patient Tobacco Use Status: Never used Tobacco Advance Directives: No Meds Allergies Allergy/AdvReac Type Severity Reaction Status Date / Time No Known Allergies Allergy Verified 04/06/22 08:55 [No Known Allergies*] Active Medications: Current Medications Acetaminophen (Acetaminophen 325 Mg Tablet) 650 mg PO Q6H PRN PRN Reason: Pain, Mild (Pain Scale 1-3) Enoxaparin Sodium (Enoxaparin Sodium 40 Mg/0.4 Ml Syringe) 40 mg SUBCUT DAILY [facility] Furosemide (Furosemide 20 Mg/2 Ml Vial) 20 mg IVPUSH Q12H [facility]; Protocol Metoprolol Tartrate (Metoprolol Tartrate 25 Mg Tablet) 25 mg PO BID [facility]; Protocol Pharmacy Consult (Consult Rx Perform Med Rec) 1 each MISCELLANE ONCE PRN PRN Reason: Consult order Sodium Chloride (0.9 % Sodium Chloride Flush 3 Ml Syringe) 3 ml IVFLUSH QSHIFT [facility] Home Medications Medication Instructions Recorded Confirmed Last Taken Type losartan 50 mg tablet 50 mg PO DAILY 05/16/20 04/06/22 Unknown History aspirin 81 mg tablet,delayed 81 mg PO DAILY 04/06/22 04/06/22 Unknown History release Physical Exam Vital Signs and Narrative: Vital Signs: Last Vital Signs Temp 98.4 F 04/25/22 05:51 Pulse 100 04/25/22 05:51 Resp 35 H 04/25/22 05:51 BP 122/57 L 04/25/22 05:51 Pulse Ox 94 04/25/22 05:51 O2 Del Method 04/25/22 05:51 BMI result Body Mass Index 37.1 General: no acute distress HEENT: atraumatic Neck: normal to visual inspection CVS: S1, S2, irregular Resp: CTA bilateral Chest: non tender GI: soft, non tender, non distended : no CVA tenderness Skin: RLE erythema Extremities: bilateral LE 3+ edema Neuro: Oriented X3, grossly intact Psych: cooperative Results Labs CBC and Chem 7: 04/25/22 04:12 04/25/22 04:11 Labs: Laboratory Results - last 24 hr 04/25/22 04/25/22 04/25/22 04:11 04:11 04:11 MCV MCH MCHC RDW Plt Count MPV Immature Gran % (Auto) Neut % (Auto) Lymph % (Auto) [place] % (Auto) Eos % (Auto) Baso % (Auto) Lymph # (Auto) [place] # (Auto) Eos # (Auto) Baso # (Auto) Abs Immat Gran (auto) Absolute Neuts (auto) Absolute Nucleated RBC Nucleated RBC % (auto) PT INR APTT Anion Gap 17 Estim Creat Clear Calc 57.7 Estimated GFR > 60 Random Glucose 154 H Lactic Acid 2.0 Calcium 8.6 D Magnesium 1.7 Total Bilirubin 2.5 H Direct Bilirubin 0.6 H AST 14 ALT 10 Alkaline Phosphatase 50 D Troponin I High Sens B-Natriuretic Peptide Total Protein 5.8 L Albumin 3.6 Lipase 7 L TSH 0.59 Urine Color Urine Appearance Urine pH Ur Specific [place] Urine Protein Urine Glucose (UA) Urine Ketones Urine Blood Urine Nitrite Ur Leukocyte Esterase Urine RBC Urine WBC Ur Squamous Epith Cells Urine Bacteria Hyaline Casts COVID-19 ([facility]) Negative COVID-19 Clin Com See Note 04/25/22 04/25/22 04/25/22 04:12 04:12 04:12 MCV 91.0 MCH 29.2 MCHC 32.1 RDW 13.5 Plt Count 145 L D MPV 8.9 L Immature Gran % (Auto) 0.8 H Neut % (Auto) 88.7 H Lymph % (Auto) 5.1 L [place] % (Auto) 4.9 Eos % (Auto) 0.2 Baso % (Auto) 0.3 Lymph # (Auto) 0.8 L [place] # (Auto) 0.7 Eos # (Auto) 0.0 Baso # (Auto) 0.0 Abs Immat Gran (auto) 0.12 H Absolute Neuts (auto) 13.1 H Absolute Nucleated RBC 0.000 Nucleated RBC % (auto) 0.0 PT 16.9 H INR 1.5 H APTT 31.4 Anion Gap Estim Creat Clear Calc Estimated GFR Random Glucose Lactic Acid Calcium Magnesium Total Bilirubin Direct Bilirubin AST ALT Alkaline Phosphatase Troponin I High Sens 23.4 B-Natriuretic Peptide 135 H Total Protein Albumin Lipase TSH Urine Color Urine Appearance Urine pH Ur Specific [place] Urine Protein Urine Glucose (UA) Urine Ketones Urine Blood Urine Nitrite Ur Leukocyte Esterase Urine RBC Urine WBC Ur Squamous Epith Cells Urine Bacteria Hyaline Casts COVID-19 ([facility]) COVID-19 Clin Com 04/25/22 05:55 MCV MCH MCHC RDW Plt Count MPV Immature Gran % (Auto) Neut % (Auto) Lymph % (Auto) [place] % (Auto) Eos % (Auto) Baso % (Auto) Lymph # (Auto) [place] # (Auto) Eos # (Auto) Baso # (Auto) Abs Immat Gran (auto) Absolute Neuts (auto) Absolute Nucleated RBC Nucleated RBC % (auto) PT INR APTT Anion Gap Estim Creat Clear Calc Estimated GFR Random Glucose Lactic Acid Calcium Magnesium Total Bilirubin Direct Bilirubin AST ALT Alkaline Phosphatase Troponin I High Sens B-Natriuretic Peptide Total Protein Albumin Lipase TSH Urine Color Yellow Urine Appearance Clear Urine pH 5.5 Ur Specific [place] 1.015 Urine Protein 30 (1+) H Urine Glucose (UA) Negative Urine Ketones Trace Urine Blood Negative Urine Nitrite Negative Ur Leukocyte Esterase Negative Urine RBC 0-2 Urine WBC 0-5 Ur Squamous Epith Cells 0-2 Urine Bacteria None Seen Hyaline Casts 0-2 COVID-19 ([facility]) COVID-19 Clin Com Imaging Radiologist's Impressions: Impressions Chest X-Ray 04/25/22 03:45 IMPRESSION: No focal consolidation identified. Small left pleural effusion is difficult to exclude. Assessment and Plan (1) Leg edema: Status: Acute Plan 87M with PMH of prostate cancer, bladder cancer, basal cell skin cancer, HTN, obesity, diet controlled DM, obesity, persistent afib presented with lower extremity edema bilateral lower extremity edema with RLE erythema diffrential includes - acute on chronic HFref, portal HTN, venous stasis/pulm HTN. RLE with acute stasis dermatitis and possible superimposed bacterial cellulitis - will empirically treat with ancef IV lasix check echo, CT abd persistent afib with rvr metoprolol asa previously had decided against AC prostate ca prednisone, proscar, abiraterone HTN metoprolol will hold losartan for now to allow for rate control meds diet controlled DM last a1c 6.9, monitor obesity weight loss recommended dvt prophylaxis - lovenox full code patient with signficant edema requiring iv diuresis, possible bacterial cellulitis at risk for sepsis/poor outcome due to obesity, advanced age, and DM, therefore, expected to require atleast 2 midnights in hospital. Quality Stroke Does the patient have a stroke diagnosis?: No VTE Prior VTE?: No VTE Risk Level:: Medical - moderate - high VTE Device Contraindication: Treatment Not Indicated VTE Drug Contraindication: N/A - Med Ordered
--- NOTE | 2022-04-25 09:07 | PHA.MEDREC ---
Pharmacy Consult ? Medication Reconciliation Pharmacy has completed the medication reconciliation. Patient poor historian of medications. Called Isabel (Spouse) and confirmed meds.
[2022-04-25] MEDS: Metoprolol Tartrate 25 MG TABLET PO ×2 (10:16→20:34)
[2022-04-25] MEDS: 0.9 % Sodium Chloride Flush 3 ML SYRINGE IVFLUSH ×3 (10:16→20:34)
[2022-04-25] MEDS: Enoxaparin Sodium 40 MG/0.4 ML SYRINGE SUBCUT (10:17)
--- NOTE | 2022-04-25 12:47 | PC.NURSE ---
Pharmacy notified this RN that we do not carry one of the patients home medications. of patient called and asked to bring home medication zytega for patient.
[2022-04-25] MEDS: Furosemide 20 MG/2 ML VIAL IVPUSH (20:34)
[2022-04-25] MEDS: predniSONE 5 MG TABLET PO (20:34)
[2022-04-26] VITALS (7 sets, daily range): BP systolic 124–160; BP diastolic 60–79; PULSE 64–95; RESP 16–20; TEMP 36.7–37.3; O2SAT 90–98
[2022-04-26 06:40] LABS: Hematocrit 39.1 % (42.0-52.0); Hemoglobin 12.7 g/dl (14.0-18.0); Mean Corpuscular HGB Conc 32.5 g/dl (31.0-36.0); Mean Corpuscular Volume 89.3 fL (80.0-98.0); Mean Platelet Volume 9.4 fL (9.4-12.4); Platelet Count 114 X10*3/uL (160-400); Red Blood Count 4.38 X10*6/uL (4.60-5.80); Red Cell Distribution Width 13.2 % (11.0-16.0); White Blood Count 15.2 X10*3/uL (4.8-10.8)
--- NOTE | 2022-04-26 07:00 | CA_ITS ---
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 There is mildly increased left ventricular wall thickness. The visually estimated ejection fraction is between 55-60%. - Normal right ventricular cavity size and systolic function. - There is mild dilatation of the sinuses of Valsalva measuring 3.61 cm and mild dilatation of the ascending aorta measuring 3.50 cm. Findings Procedure Information Contrast agent, definity, is being given per protocol without apparent complications. Left Ventricle Normal left ventricular size and systolic function. There is mildly increased left ventricular wall thickness. The visually estimated ejection fraction is between 55-60%. There is no evidence of regional wall motion abnormalities. Diastolic function is indeterminate on the basis of available data. Right Ventricle Normal right ventricular cavity size and systolic function. Atria The left atrium is mildly dilated. The right atrium is mildly dilated. Aortic Valve There is a normal trileaflet aortic valve. There is mild calcification of the aortic valve. There is no aortic valve stenosis. There is no aortic valve regurgitation. Mitral Valve The mitral valve appears normal. There is no mitral valve regurgitation. There is no mitral valve stenosis. Pulmonic Valve Normal pulmonic valve structure and function. There is no pulmonic valve regurgitation. Tricuspid Valve Normal tricuspid valve structure and function. There is trace tricuspid valve regurgitation. Normal right atrial pressure. Mild pulmonary hypertension is present. Great Vessels There is mild dilatation of the sinuses of Valsalva measuring 3.61 cm and mild dilatation of the ascending aorta measuring 3.50 cm. The visualized portions of the pulmonary artery and branches are normal. Venous The inferior vena cava is normal in size and collapses greater than 50% with inspiration. Pericardium/Pleural There is no evidence of pericardial effusion. Measurements 2D Linear Measurements IVSd: 1.17 0.6-0.9/0.6-1.0 cm LVIDd: 5.86 3.9-5.3/4.2-5.9 cm LVIDd Index: 2.76 2.4-3.2/2.2-3.1 cm/m2 LVIDs: 4.98 2.0-3.6 cm LVPWd: 1.20 0.7-1.1 cm LA Diam: 4.10 2.7-3.8/3.0-4.0 cm LAIDs Index: 1.93 1.5-2.3 cm/m2 LV Mass: 370.46 67-162/88-224 g LV Mass Index: 174.75 43-95/49-115 g/m2 LVOT Diam: 2.20 3.0+(-)1.3 cm 2D Systolic Function EF 4C: 52.50 >55% EF 2C: 51.90 >55% EF BiP: 52.50 >55% Mitral Valve MV Pk E: 0.91 MV PK A: 0.34 MV Decel Time: 198.00 E/A: 2.70 E'Lateral: 9.23 E'Medial: 6.90 E/E' Med: 13.10 E/E' Lat: 9.80 PHT: 58.00 MVA PHT: 3.79 Decel [place]: 4.69 Aortic Valve AoV Pk Sang: 1.53 AoV Pk Grad: 9.00 LVOT LVOT Pk Sang: 0.76 LVOT Pk Grad: 2.00 LVOT Diam: 2.20 LVOT Area: 3.80 Diastolic Function MV Pk E: 0.91 MV Pk A: 0.34 E/A: 2.70 E'Medial: 6.90 E/E' Med: 13.10 E' Laterial: 9.23 E/E' Lat: 9.80 Right Ventricle TAPSE (mm): 15.80 TVS' Sang: 11.60 Tricuspid Valve TR Pk Sang: 2.97 TR Pk Grad: 35.00 RA Press: 8.00 RVSP: 43.00 Great Vessels Aorta Sinus of Valsalva: 3.61 2.0-3.[address] [place]: 2.76 1.7-3.4 cm Ao Asc: 3.50 2.1-3.4 cm Updated in Other Vendor System with Status of Final Gildardo Santiago MD electronically signed on 04/27/2022 2:54:53 PM with status of Final
[2022-04-26 07:09] LABS: Anion Gap 19 (12-20); Blood Urea Nitrogen 24 mg/dL (9-16); Calcium 7.7 mg/dL (8.4-10.2); Carbon Dioxide 23 mmol/L (22-29); Chloride 96 mmol/L (96-108); Creatinine Clr Calc Pharmacy 76.4; Estimated Glomerular Filt Rate > 60; Glucose Fasting 139 mg/dL (60-99); Magnesium 1.9 mg/dL (1.6-2.6); Potassium 3.2 mmol/L (3.3-5.1); Sodium 135 mmol/L (135-145)
[2022-04-26] MEDS: Enoxaparin Sodium 40 MG/0.4 ML SYRINGE SUBCUT (08:07)
[2022-04-26] MEDS: predniSONE 5 MG TABLET PO ×2 (08:08→22:11)
[2022-04-26] MEDS: Finasteride 5 MG TABLET PO (08:08)
[2022-04-26] MEDS: Furosemide 20 MG/2 ML VIAL IVPUSH ×2 (08:08→22:10)
[2022-04-26] MEDS: Potassium Chloride ER 20 MEQ TAB.ER.PRT 40 MEQ PO (08:08)
[2022-04-26] MEDS: Aspirin Enteric Coated 81 MG TABLET.DR PO (08:08)
[2022-04-26] MEDS: Metoprolol Tartrate 25 MG TABLET PO ×2 (08:08→22:11)
[2022-04-26] MEDS: 0.9 % Sodium Chloride Flush 3 ML SYRINGE IVFLUSH ×3 (08:09→22:25)
[2022-04-26 08:10] LABS: HBS Num1 0.86 mIU/mL (0-7.99); HBc Num1 0.11 S/CO (0.00-0.79); HBsAGNum1 0.19 S/CO (0.00-0.99); Hepatitis B Core Antibody Nonreactive (Nonreactive); Hepatitis B Surface Antigen Negative (Negative); ~HepC Num1 0.04 S/CO (0.00-0.79); ~Hepatitis B Surface Antibody NONREACTIVE (Nonreactive); ~Hepatitis C Antibody Nonreactive (Nonreactive)
--- NOTE | 2022-04-26 09:12 | MHC.CM.PN ---
IMM DELIVERED CM MET WITH PT. LIVES IN SINGLE FAMILY HOME WITH SPOUSE. USES WALKER AND CANE, NO SERVICES CURRENTLY. PT DECLINES STRIF NEEDE, WOULD LIKE TO RETURN HOME WITH [facility] SERVICES IF NEEDED. HAS HCP BUT UNSURE WHERE IT IS, DECLINES TO DO A NEW ONE. REQUEST TO BRING IN COPY IF ABLE. COVID VAX X2. PCP DR. LIAM GARCIA. DP:PER PT, FAMILY WILL TRANSPORT HOME, REFERRAL SENT TO [facility]. CM WILL FOLLOW FOR DC NEEDS.
--- NOTE | 2022-04-26 09:22 | HO.PM.IMPN ---
Subjective Subjective Date of Service: 04/26/22 Interval History: cc: leg edema, difficulty walking interval history: some improvement Cardiovascular Cardiovascular: Reports no additional cardiovascular complaints Respiratory Respiratory: Reports no additional respiratory complaints Physical Exam Vital Signs: Vital Signs: Last Vital Signs Temp 98.8 F 04/26/22 07:36 Pulse 95 04/26/22 07:36 Resp 20 04/26/22 07:36 BP 136/61 04/26/22 07:36 Pulse Ox 93 04/26/22 07:36 O2 Del Method 04/26/22 07:36 BMI result Body Mass Index 37.1 General: AO X 3, no acute distress Resp: CTA bilateral, no accessory muscles used CVS: S1,S2,RRR, 2-3+ edema GI: soft, non tender, non distended Neuro: motor grossly intact, alert Psych: appropriate affect, appropriate insight Objective Data Active Medications Acetaminophen (Acetaminophen 325 Mg Tablet) 650 mg PO Q6H PRN PRN Reason: Pain, Mild (Pain Scale 1-3) Aspirin (Aspirin Enteric Coated 81 Mg Tablet.) 81 mg PO DAILY [facility] Last Admin: 04/26/22 08:08 Dose: 81 mg Documented By: SUSAN Enoxaparin Sodium (Enoxaparin Sodium 40 Mg/0.4 Ml Syringe) 40 mg SUBCUT DAILY [facility] Last Admin: 04/26/22 08:07 Dose: 40 mg Documented By: SUSAN Finasteride (Finasteride 5 Mg Tablet) 5 mg PO DAILY [facility] Last Admin: 04/26/22 08:08 Dose: 5 mg Documented By: SUSAN Furosemide (Furosemide 20 Mg/2 Ml Vial) 20 mg IVPUSH Q12H [facility]; Protocol Last Admin: 04/26/22 08:08 Dose: 20 mg Documented By: SUSAN Cefazolin Sodium 1 gm/ Sodium (Chloride) 50 mls @ 100 mls/hr IV Q8H [facility] Last Admin: 04/26/22 08:09 Dose: 100 mls/hr Documented By: SUSAN Metoprolol Tartrate (Metoprolol Tartrate 25 Mg Tablet) 25 mg PO BID [facility]; Protocol Last Admin: 04/26/22 08:08 Dose: 25 mg Documented By: SUSAN Pt Own Med ( Abiraterone Acetate 500 Mg) 500 mg PO DAILY@0630 [facility] Last Admin: 04/26/22 06:33 Dose: 500 mg Documented By: MAIDA Pharmacy Consult (Consult Rx Perform Med Rec) 1 each MISCELLANE ONCE PRN PRN Reason: Consult order Prednisone (Prednisone 5 Mg Tablet) 5 mg PO BID [facility] Last Admin: 04/26/22 08:08 Dose: 5 mg Documented By: SUSAN Sodium Chloride (0.9 % Sodium Chloride Flush 3 Ml Syringe) 3 ml IVFLUSH QSHIFT [facility] Last Admin: 04/26/22 08:09 Dose: 3 ml Documented By: SUSAN Labs CBC & Chem 7: 04/26/22 06:21 04/26/22 06:21 Labs: Laboratory Results - last 24 hr 04/26/22 04/26/22 04/26/22 06:21 06:21 06:21 MCV 89.3 MCH 29.0 MCHC 32.5 RDW 13.2 Plt Count 114 L MPV 9.4 Absolute Nucleated RBC 0.000 Nucleated RBC % (auto) 0.0 Anion Gap 19 Estim Creat Clear Calc 76.4 Estimated GFR > 60 Fasting Glucose 139 H D Calcium 7.7 L D Magnesium 1.9 Hep Bs Antigen Negative Hep Bs Antibody NONREACTIVE Hep B Core Total Ab Nonreactive Hepatitis C Ab (EIA) Nonreactive Microbiology Microbiology Results: Microbiology 04/25/22 04:23 Blood Culture - Preliminary Blood - Venous No growth after 24 hours. 04/25/22 04:23 Blood Culture - Preliminary Blood - Venous No growth after 24 hours. Assessment and Plan (1) Leg edema: Status: Acute Plan 87M with PMH of prostate cancer, bladder cancer, basal cell skin cancer, HTN, obesity, diet controlled DM, obesity, persistent afib presented with lower extremity edema bilateral lower extremity edema with RLE erythema diffrential includes - acute on chronic HFref, venous stasis/pulm HTN. RLE with acute stasis dermatitis and possible superimposed bacterial cellulitis - will empirically treat with ancef IV lasix check echo persistent afib with rvr metoprolol asa previously had decided against AC prostate ca prednisone, proscar, abiraterone HTN metoprolol holding losartan for now to allow for rate control meds diet controlled DM last a1c 6.9, monitor obesity weight loss recommended dvt prophylaxis - lovenox full code reason for continued hospitalization:diuresing Quality Stroke Does the patient have a stroke diagnosis?: No VTE Prior VTE?: No VTE Risk Level:: Medical - moderate - high VTE Device Contraindication: Treatment Not Indicated VTE Drug Contraindication: N/A - Med Ordered
--- NOTE | 2022-04-27 00:03 | ECG_ITS ---
Test Reason : pvc's Blood Pressure : / mmHG Vent. Rate : 087 BPM Atrial Rate : 000 BPM P-R Int : 000 ms QRS Dur : 102 ms QT Int : 368 ms P-R-T Axes : 000 009 -01 degrees QTc Int : 442 ms Atrial fibrillation with premature ventricular or aberrantly conducted complexes Low voltage QRS RSR' or QR pattern in V1 suggests right ventricular conduction delay Abnormal ECG No previous ECGs available Referred By: Laura Kolb Electronically Signed By:KAREN FLOREZ MD
[2022-04-27 00:58] LABS: Anion Gap 16 (12-20); Blood Urea Nitrogen 25 mg/dL (9-16); Calcium 7.5 mg/dL (8.4-10.2); Carbon Dioxide 26 mmol/L (22-29); Chloride 97 mmol/L (96-108); Creatinine Clr Calc Pharmacy 84.1; Estimated Glomerular Filt Rate > 60; Glucose Random 176 mg/dL (60-115); Magnesium 2.1 mg/dL (1.6-2.6); Potassium 3.5 mmol/L (3.3-5.1); Sodium 135 mmol/L (135-145)
[2022-04-27 03:48] VITALS: BP 144/62; PULSE 83; RESP 20; TEMP 36.5; O2SAT 98
[2022-04-27 06:24] LABS: Hemoglobin 12.5 g/dl (14.0-18.0); Mean Corpuscular HGB Conc 32.9 g/dl (31.0-36.0); Mean Corpuscular Hemoglobin 28.9 pg (27.0-33.0); Mean Platelet Volume 9.7 fL (9.4-12.4); Platelet Count 112 X10*3/uL (160-400); Red Blood Count 4.32 X10*6/uL (4.60-5.80); Red Cell Distribution Width 13.3 % (11.0-16.0); White Blood Count 12.2 X10*3/uL (4.8-10.8)
[2022-04-27 06:53] LABS: Anion Gap 17 (12-20); Blood Urea Nitrogen 25 mg/dL (9-16); Calcium 7.5 mg/dL (8.4-10.2); Carbon Dioxide 26 mmol/L (22-29); Chloride 96 mmol/L (96-108); Creatinine Clr Calc Pharmacy 90.6; Estimated Glomerular Filt Rate > 60; Glucose Fasting 157 mg/dL (60-99); Potassium 3.6 mmol/L (3.3-5.1); Sodium 135 mmol/L (135-145)
[2022-04-27 06:57] VITALS: BP 130/70; PULSE 89; RESP 16; TEMP 37; O2SAT 94
[2022-04-27] MEDS: 0.9 % Sodium Chloride Flush 3 ML SYRINGE IVFLUSH ×3 (08:53→20:53)
[2022-04-27] MEDS: Furosemide 20 MG/2 ML VIAL IVPUSH ×2 (08:54→20:52)
[2022-04-27] MEDS: Metoprolol Tartrate 25 MG TABLET PO ×2 (08:54→20:52)
[2022-04-27] MEDS: Finasteride 5 MG TABLET PO (08:55)
[2022-04-27] MEDS: predniSONE 5 MG TABLET PO ×2 (08:55→20:52)
[2022-04-27] MEDS: Enoxaparin Sodium 40 MG/0.4 ML SYRINGE SUBCUT (08:55)
[2022-04-27] MEDS: Aspirin Enteric Coated 81 MG TABLET.DR PO (08:55)
--- NOTE | 2022-04-27 10:08 | P.PNIM_ITS ---
Subjective Subjective Date of Service: 04/27/22 Interval History: cc: leg edema, difficulty walking interval history: some improvement Cardiovascular Cardiovascular: Reports no additional cardiovascular complaints Respiratory Respiratory: Reports no additional respiratory complaints Physical Exam Vital Signs: Vital Signs: Last Vital Signs Temp 98.6 F 04/27/22 06:57 Pulse 89 04/27/22 06:57 Resp 16 04/27/22 06:57 BP 130/70 04/27/22 06:57 Pulse Ox 94 04/27/22 06:57 O2 Del Method 04/27/22 06:57 BMI result Body Mass Index 37.1 General: AO X 3, no acute distress Resp: CTA bilateral, no accessory muscles used CVS: S1,S2,RRR, 2-3+ edema R>L GI: soft, non tender, non distended Neuro: motor grossly intact, alert Psych: appropriate affect, appropriate insight RLE erythema Objective Data Active Medications Acetaminophen (Acetaminophen 325 Mg Tablet) 650 mg PO Q6H PRN PRN Reason: Pain, Mild (Pain Scale 1-3) Aspirin (Aspirin Enteric Coated 81 Mg Tablet.) 81 mg PO DAILY [facility] Last Admin: 04/27/22 08:55 Dose: 81 mg Documented By: SUSAN Enoxaparin Sodium (Enoxaparin Sodium 40 Mg/0.4 Ml Syringe) 40 mg SUBCUT DAILY [facility] Last Admin: 04/27/22 08:55 Dose: 40 mg Documented By: SUSAN Finasteride (Finasteride 5 Mg Tablet) 5 mg PO DAILY [facility] Last Admin: 04/27/22 08:55 Dose: 5 mg Documented By: SUSAN Furosemide (Furosemide 20 Mg/2 Ml Vial) 20 mg IVPUSH Q12H [facility]; Protocol Last Admin: 04/27/22 08:54 Dose: 20 mg Documented By: SUSAN Cefazolin Sodium 1 gm/ Sodium (Chloride) 50 mls @ 100 mls/hr IV Q8H [facility] Last Admin: 04/27/22 09:00 Dose: 100 mls/hr Documented By: SUSAN Metoprolol Tartrate (Metoprolol Tartrate 25 Mg Tablet) 25 mg PO BID [facility]; Protocol Last Admin: 04/27/22 08:54 Dose: 25 mg Documented By: SUSAN Pt Own Med ( Abiraterone Acetate 500 Mg) 500 mg PO DAILY@0630 [facility] Last Admin: 04/27/22 06:09 Dose: 500 mg Documented By: MAIDA Pharmacy Consult (Consult Rx Perform Med Rec) 1 each MISCELLANE ONCE PRN PRN Reason: Consult order Prednisone (Prednisone 5 Mg Tablet) 5 mg PO BID [facility] Last Admin: 04/27/22 08:55 Dose: 5 mg Documented By: SUSAN Sodium Chloride (0.9 % Sodium Chloride Flush 3 Ml Syringe) 3 ml IVFLUSH QSHIFT [facility] Last Admin: 04/27/22 08:53 Dose: 3 ml Documented By: SUSAN Labs CBC & Chem 7: 04/27/22 05:51 04/27/22 05:51 Labs: Laboratory Results - last 24 hr 04/27/22 04/27/22 04/27/22 00:25 05:51 05:51 MCV 88.0 MCH 28.9 MCHC 32.9 RDW 13.3 Plt Count 112 L MPV 9.7 Absolute Nucleated RBC 0.000 Nucleated RBC % (auto) 0.0 Anion Gap 16 17 Estim Creat Clear Calc 84.1 90.6 Estimated GFR > 60 > 60 Random Glucose 176 H Fasting Glucose 157 H Calcium 7.5 L 7.5 L Magnesium 2.1 Microbiology Microbiology Results: Microbiology 04/25/22 04:23 Blood Culture - Preliminary Blood - Venous No growth after 48 hours. 04/25/22 04:23 Blood Culture - Preliminary Blood - Venous No growth after 48 hours. Assessment and Plan (1) Leg edema: Status: Acute Plan 87M with PMH of prostate cancer, bladder cancer, basal cell skin cancer, HTN, o besity, diet controlled DM, obesity, persistent afib presented with lower extremity edema bilateral lower extremity edema with RLE erythema diffrential includes - acute on chronic HFref, venous stasis/pulm HTN. RLE with acute stasis dermatitis and possible superimposed bacterial cellulitis - empirically treat with ancef IV lasix follow up echo no dvt on US RLE popliteal cyst persistent afib with rvr metoprolol asa previously had decided against AC prostate ca prednisone, proscar, abiraterone HTN metoprolol holding losartan for now to allow for rate control meds diet controlled DM last a1c 6.9, monitor obesity weight loss recommended dvt prophylaxis - lovenox full code reason for continued hospitalization:diuresing Quality Stroke Does the patient have a stroke diagnosis?: No VTE Prior VTE?: No VTE Risk Level:: Medical - moderate - high VTE Device Contraindication: Treatment Not Indicated VTE Drug Contraindication: N/A - Med Ordered
[2022-04-27 12:00] VITALS: BP 125/65; PULSE 92; RESP 20; TEMP 36.7; O2SAT 94
[2022-04-27 15:21] VITALS: BP 138/69; PULSE 88; RESP 18; TEMP 36.7; O2SAT 96
[2022-04-27 19:10] VITALS: BP 128/79; PULSE 84; RESP 18; TEMP 36.7; O2SAT 96
[2022-04-27 23:08] VITALS: BP 137/80; PULSE 76; RESP 17; TEMP 36.8; O2SAT 93
[2022-04-28] MEDS: Acetaminophen 325 MG TABLET 650 MG PO (00:16)
[2022-04-28 07:39] VITALS: BP 140/81; PULSE 88; RESP 20; TEMP 37; O2SAT 96
[2022-04-28 07:53] LABS: Hematocrit 38.7 % (42.0-52.0); Hemoglobin 12.7 g/dl (14.0-18.0); Mean Corpuscular HGB Conc 32.8 g/dl (31.0-36.0); Mean Corpuscular Hemoglobin 28.9 pg (27.0-33.0); Mean Platelet Volume 9.6 fL (9.4-12.4); Platelet Count 117 X10*3/uL (160-400); Red Cell Distribution Width 13.4 % (11.0-16.0); White Blood Count 6.4 X10*3/uL (4.8-10.8)
[2022-04-28 08:17] LABS: Anion Gap 16 (12-20); Blood Urea Nitrogen 21 mg/dL (9-16); Calcium 7.4 mg/dL (8.4-10.2); Carbon Dioxide 28 mmol/L (22-29); Chloride 100 mmol/L (96-108); Creatinine Clr Calc Pharmacy 101.5; Estimated Glomerular Filt Rate > 60; Glucose Fasting 130 mg/dL (60-99); Potassium 3.6 mmol/L (3.3-5.1); Sodium 140 mmol/L (135-145)
[2022-04-28] MEDS: Enoxaparin Sodium 40 MG/0.4 ML SYRINGE SUBCUT (08:33)
[2022-04-28] MEDS: Furosemide 20 MG/2 ML VIAL IVPUSH (08:41)
[2022-04-28] MEDS: Finasteride 5 MG TABLET PO (08:42)
[2022-04-28] MEDS: Aspirin Enteric Coated 81 MG TABLET.DR PO (08:42)
[2022-04-28] MEDS: predniSONE 5 MG TABLET PO (08:42)
[2022-04-28] MEDS: Metoprolol Tartrate 25 MG TABLET PO (08:42)
[2022-04-28] MEDS: 0.9 % Sodium Chloride Flush 3 ML SYRINGE IVFLUSH (10:23)
[2022-04-28 11:13] VITALS: BP 140/81; PULSE 88; O2SAT 96
[2022-04-28 12:00] VITALS: BP 117/69; PULSE 86; RESP 18; TEMP 36.6; O2SAT 95
[2022-04-28 13:15] LABS: COVID-19 Test Negative (Negative); IDNOW Serial# 16C4AD1C
--- NOTE | 2022-04-28 13:49 | PM.DS ---
DS: Providers Provider Date of Service: 04/28/22 Date of admission: 04/25/22 07:53 Primary care physician: Corinna Miranda MD DS: Diagnosis Discharge Diagnosis (1) Leg edema: Status: Acute (2) Cellulitis: Status: Acute (3) Persistent atrial fibrillation: Status: Acute DS: Summary Hospital Course Hospital Course: Admission note HPI 87M with PMH of prostate cancer, bladder cancer, basal cell skin cancer, HTN, obesity, diet controlled DM, obesity, persistent afib, presented with leg edema. patient has notice worsening bilateral leg edema for about 1 week. this has made it difficult for him to ambulate, to the point where he can no longer walk at all so he came to ED. he denies any shortness of breath or orthopnea or chest pain. he has not had and fevers or chills. denies abdominal pain or distension. he was recently diagnosed with afib, in january 2022 echo showed mildly reduced EF, pulmonary HTN. he is not on anticoagulation or rate control meds. in ED patient in afib with mild RVR, labs significant for elevated LFTs - inr 1.5, tbili 2.5. platelets reduced at 145. wbc elevated to 14.8. Hospital course S the patient was admitted to the hospital for evaluation of lower extremity edema with right lower extremity erythema. Noted to have elevated BNP and leukocytosis. Ultrasound was negative for DVT. Treated with IV Lasix with good response as the swelling decreased significantly. Antibiotics were added for likely superimposed bacterial cellulitis with fair response as erythema, tenderness decreased significantly. Echo was done showing normal EF with mild increase LV thickness. The patient was noted to have persistent atrial fibrillation with rapid ventricular response controlled by metoprolol. The patient previously decided against anticoagulation and was kept on baby aspirin only. Evaluated by physical therapy team who recommended short-term rehab. Keep legs elevated Continue doxycycline and Ceftin for 5 more days Start Lasix 20 mg daily, monitor your weight on daily basis Start metoprolol XL 50 mg daily To follow-up with PCP as outpatient Time Spent with Patient Time attestation: Total time spent providing and/or coordinating discharge services: Discharge coordination time: Greater than 30 minutes Quality: Safe Use of Opioids Does Pt have an Active Cancer Diagnosis on the Problem List?: No Quality: Stroke Does the patient have a stroke diagnosis?: No Physical Exam Vital Signs: Vital Signs: Last Vital Signs Temp 98 F 10/19/22 12:00 Pulse 86 04/28/22 12:00 Resp 18 04/28/22 12:00 BP 117/69 04/28/22 12:00 Pulse Ox 95 04/28/22 12:00 O2 Del Method 04/28/22 12:00 BMI result Body Mass Index 37.1 Const: Other: Constitutional : Alert, oriented, not in distress Neck : Normal inspection, Supple Cardiovascular : RRR, no JVP, no lower extremity edema Respiratory : fair bilateral air entry, no crackles, wheezes or rhonchi Gastrointestinal: soft, lax, Normal bowel sounds, Non tender Skin : Warm, Dry, right lower extremity mild erythema with no significant tenderness, signs of stasis dermatitis and previous knee surgery Neurological : Alert & oriented x3, No focal deficit DS: Data Data Completed and Pending Labs on day of discharge: Laboratory Results - last 24 hr 04/28/22 04/28/22 04/28/22 07:31 07:31 12:48 WBC 6.4 RBC 4.40 L Hgb 12.7 L Hct 38.7 L MCV 88.0 MCH 28.9 MCHC 32.8 RDW 13.4 Plt Count 117 L MPV 9.6 Absolute Nucleated RBC 0.000 Nucleated RBC % (auto) 0.0 Sodium 140 Potassium 3.6 Chloride 100 Carbon Dioxide 28 Anion Gap 16 BUN 21 H Creatinine 0.58 Estim Creat Clear Calc 101.5 Estimated GFR > 60 Fasting Glucose 130 H Calcium 7.4 L COVID-19 ([facility]) Negative COVID-19 Clin Com See Note Preliminary micro results at discharge 04/25/22 04:23 Blood Culture - Preliminary Blood - Venous No growth after 48 hours. 04/25/22 04:23 Blood Culture - Preliminary Blood - Venous No growth after 48 hours. Imaging Chest x-ray: Radiologist's impression: ITS Impressions Chest X-Ray 04/25/22 03:45 IMPRESSION: No focal consolidation identified. Small left pleural effusion is difficult to exclude. Abdomen/Pelvis CT 04/25/22 08:26 IMPRESSION: No acute intra-abdominal process seen. No varicosities seen in the abdomen to suspect any elevated portal hypertension. Probable cyst left hepatic lobe. Fleischner guidelines were followed. Venous Duplex 04/25/22 09:12 IMPRESSION: 1. No evidence of deep venous thrombosis in the right lower extremity. 2. No evidence of deep venous fibrosis in the left lower extremity down to the popliteal level. In the calf, the peroneal veins could not be seen. Depending on clinical circumstances, repeat DVT study in 7-10 days could be performed to exclude proximal clot propagation from a nonvisualized calf vein. 3. Bilateral complex appearing fluid collections are seen in the popliteal fossa, presumably representing popliteal cysts. The finding in the right popliteal fossa has associated curvilinear shadowing calcification. Close clinical correlation is requested. Discharge Plan Discharge Anticipated Discharge Date/Time: 04/28/22 13:41 Patient Disposition: Xfer [facility] Discharge Diagnosis: Leg edema, cellulitis Referrals: Carline Rosenthal [Outside] - 1 Week Corinna Miranda MD [Primary Care Provider] - 1 Week Discharge Medications: New furosemide 20 mg tablet 20 mg PO DAILY Qty: 30 0RF doxycycline monohydrate 100 mg capsule 100 mg PO BID Qty: 10 0RF cefuroxime axetil 500 mg tablet 500 mg PO BID Qty: 10 0RF metoprolol succinate 50 mg tablet extended release 24 hr 50 mg PO DAILY Qty: 30 0RF Continued abiraterone 500 mg tablet 500 mg PO DAILY 90 Days Qty: 90 1RF Rx Instructions: must be taken on empty stomach, at least 1 hr before or 2 hrs after a meal/food finasteride 5 mg tablet 5 mg PO DAILY Qty: 90 2RF prednisone 5 mg tablet 5 mg PO BID 90 Days Qty: 180 3RF calcium citrate-vitamin D3 [Citracal + D Maximum] 315 mg-6.25 mcg (250 unit) tablet 1 tab PO DAILY aspirin 81 mg tablet,delayed release (DR/EC) 81 mg PO DAILY Discharge Orders: Discharge Order (Routine); Ordered 04/28/22 Ordered By: Lyndsey Clarke Diet: Low salt diet Activity on Discharge: As tolerated Stand Alone Forms: Patient Portal Discharge page Care Plan Goals: Read below Health Concerns: Read below Plan of Treatment: Read below Assessment: You were admitted to the hospital for evaluate of lower extremities edema. Treated as heart failure exacerbation and skin infection with good response over the course of hospital stay. Developed rapid heart rate with atrial fibrillation controlled with beta-blockers. You decided not to be on blood thinners. Continue doxycycline and Ceftin for 5 more days Start Lasix 20 mg daily, monitor your weight on daily basis Start metoprolol XL 50 mg daily To follow-up with PCP as outpatient
[2022-04-28 16:00] VITALS: BP 118/72; PULSE 70; RESP 18; TEMP 36.7; O2SAT 95
== END 2022-04-28 17:58 | disposition skilled nursing facility (03) | DRG 291 ==
LOC: HO.ED 04:45 → HO.EDOVER 09:05 → HO.IMC 12:04
PROVIDERS: Internal Medicine; Admitting Provider Internal Medicine; Emergency Provider Emergency Medicine; PCP Family Medicine; Visit Provider Student in an Organized Health Care Education/Training Program
DX: I11.0 Hypertensive heart disease with heart failure (principal); I50.23 Acute on chronic systolic (congestive) heart failure; L03.115 Cellulitis of right lower limb; I48.19 Other persistent atrial fibrillation; K76.6 Portal hypertension; C61 Malignant neoplasm of prostate; E66.9 Obesity, unspecified; E11.9 Type 2 diabetes mellitus without complications; I87.323 Chronic venous hypertension (idiopathic) with inflammation of bilateral lower extremity; D72.89 Other specified disorders of white blood cells; I27.20 Pulmonary hypertension, unspecified; Z85.51 Personal history of malignant neoplasm of bladder; Z68.37 Body mass index [BMI] 37.0-37.9, adult; Z85.828 Personal history of other malignant neoplasm of skin; Z20.822 Contact with and (suspected) exposure to COVID-19; Z79.52 Long term (current) use of systemic steroids; Z79.82 Long term (current) use of aspirin; Z79.899 Other long term (current) drug therapy
CPT/HCPCS: 36415; 71045; 74176; 80048; 80076; 81001; 81003; 83605; 83690; 83735; 83880; 84443; 84484; 85025; 85027; 85610; 85730; 86704; 86706; 86803; 87040; 87340; 87635; 93005; 93306; 93970; 97162; 99285; J0690; J1650; J1940; J2543; Q9957

== ENCOUNTER 2022-07-07 14:11 | Outpatient (REF) | payer MEDICARE, SELFPAY ==
[2022-07-07 14:37] LABS: MANUAL DIFF FLAG NO
[2022-07-07 16:01] LABS: Basophils Percent Auto 0.3 % (0-2); Eosinophils Absolute Auto 0.1 X10*3/uL (0.0-0.4); Eosinophils Percent Auto 1.4 % (0-4); Hematocrit 37.7 % (42.0-52.0); Hemoglobin 12.1 g/dl (14.0-18.0); Imm Gran Abs Auto 0.05 X10*3/uL (0.00-0.03); Imm Gran Pct Auto 0.5 % (0.0-0.4); Lymphocytes Absolute Auto 1.9 X10*3/uL (1.2-4.9); Lymphocytes Percent Auto 19.7 % (20-40); Mean Corpuscular HGB Conc 32.1 g/dl (31.0-36.0); Mean Corpuscular Hemoglobin 29.4 pg (27.0-33.0); Mean Corpuscular Volume 91.7 fL (80.0-98.0); Mean Platelet Volume 10.2 fL (9.4-12.4); Monocytes Absolute Auto 0.7 X10*3/uL (0.1-1.2); Monocytes Percent Auto 7.8 % (2-11); Neutrophils Absolute Auto 6.7 x10*3/uL (2.0-8.3); Neutrophils Percent Auto 70.3 % (45-73); Platelet Count 268 X10*3/uL (160-400); Red Blood Count 4.11 X10*6/uL (4.60-5.80); Red Cell Distribution Width 13.4 % (11.0-16.0); White Blood Count 9.5 X10*3/uL (4.8-10.8)
[2022-07-07 16:14] LABS: Estimated Average Glucose 151 mg/dL; Hemoglobin A1c % 6.9 %
[2022-07-07 16:37] LABS: Alanine Aminotransferase 9 U/L (0-40); Albumin Level 3.7 g/dL (3.5-5.0); Alkaline Phosphatase 59 U/L (39-117); Anion Gap 12 (12-20); Aspartate Amino Transferase 15 U/L (5-37); Bilirubin Total 1.6 mg/dL (0.0-1.0); Blood Urea Nitrogen 13 mg/dL (9-16); Calcium 9.2 mg/dL (8.4-10.2); Carbon Dioxide 37 mmol/L (22-29); Chloride 94 mmol/L (96-108); Estimated Glomerular Filt Rate > 60; Glucose Random 213 mg/dL (60-115); Iron 51 mcg/dL (45-160); Percent Iron Saturation 19 % (15-50); Potassium 3.4 mmol/L (3.3-5.1); Sodium 140 mmol/L (135-145); Total Iron Binding Capacity 269 mcg/dL (228-428); Total Protein 6.4 g/dL (6.5-8.0); Unsaturated Iron Binding 218 ug/dL
== END 2022-07-07 14:12 | disposition home or self-care (01) ==
LOC: HO.LAB 14:11
PROVIDERS: PCP Internal Medicine; Visit Provider Internal Medicine
DX: I48.91 Unspecified atrial fibrillation (principal); I10 Essential (primary) hypertension; R60.0 Localized edema; M10.9 Gout, unspecified; D64.9 Anemia, unspecified; R73.03 Prediabetes
CPT/HCPCS: 36415; 80053; 83036; 83540; 85025

== ENCOUNTER → 2022-07-08 10:57 | Outpatient (BNVA) | payer MEDICARE, SELFPAY | PROVIDERS: PCP Internal Medicine; Visit Provider Urology | DX: R97.21 Rising PSA following treatment for malignant neoplasm of prostate (principal); C61 Malignant neoplasm of prostate; M81.8 Other osteoporosis without current pathological fracture; T38.7X5A Adverse effect of androgens and anabolic congeners, initial encounter | CPT/HCPCS: Q3014 ==

== ENCOUNTER 2022-07-27 10:26 | Outpatient (REF) | payer MEDICARE, SELFPAY ==
[2022-07-27 15:31] LABS: Prostate Specific Antigen < 0.10 ng/mL (<0.05-4.0)
[2022-08-01 14:04] LABS: Testosterone, Total 3 ng/dL (250-1100)
== END 2022-07-27 10:27 | disposition home or self-care (01) ==
LOC: HO.10HDL 10:26
PROVIDERS: Visit Provider Urology
DX: Z12.5 Encounter for screening for malignant neoplasm of prostate (principal); C61 Malignant neoplasm of prostate; M81.8 Other osteoporosis without current pathological fracture; R97.21 Rising PSA following treatment for malignant neoplasm of prostate; T38.7X5A Adverse effect of androgens and anabolic congeners, initial encounter
CPT/HCPCS: 36415; 84153; 84403

== ENCOUNTER → 2022-08-11 13:11 | Outpatient (BNVA) | payer MEDICARE, SELFPAY | PROVIDERS: PCP Internal Medicine; Visit Provider Urology | DX: C61 Malignant neoplasm of prostate (principal); R97.21 Rising PSA following treatment for malignant neoplasm of prostate | CPT/HCPCS: 99212 ==

== ENCOUNTER 2022-08-24 12:39 | Emergency (ER) | payer MEDICARE, SELFPAY ==
--- NOTE | ~2022-08-24 | CT_ITS ---
EXAMINATION: CT HEAD WITHOUT CONTRAST CLINICAL INFORMATION: Lower extremity weakness. COMPARISON: None. TECHNIQUE: Contiguous axial imaging was performed from the skullbase to vertex without intravenous administration of contrast. This CT examination was performed using dose optimization techniques as appropriate, variously including the following: *Automated exposure control *Adjustment of mA and/or kV according to patient size (this includes techniques or standardized protocols for targeted exams where dose is matched to indication/reason for exam; i.e. extremities or head) *Use of iterative reconstruction technique DLP: 708 mGy-cm. FINDINGS: There is no evidence of acute intracranial hemorrhage or territorial infarction. No abnormal mass effect or midline shift is seen. [place] to white matter differentiation is well preserved. No extra-axial fluid collections are identified. Generalized parenchymal volume loss noted. No evidence of hydrocephalus. Mild chronic white matter microangiopathic changes noted. The osseous structures and soft tissues are normal. The mastoid air cells and visualized portions of the paranasal sinuses are fairly well aerated. CT/CT head/brain wo IV con IMPRESSION: No acute intracranial hemorrhage or territorial infarction.
--- NOTE | ~2022-08-24 | XR_ITS ---
EXAMINATION: XR HIP, LEFT CLINICAL INFORMATION: Pain COMPARISON: X-rays of the pelvis and right hip April 2016. CT scan of the abdomen and pelvis April 2022. TECHNIQUE: Single view pelvis and 2 views of the left hip FINDINGS: Left hip: Small marginal osteophytes without joint space narrowing indicative of mild osteoarthritis unchanged. Pelvis: Left hip as above. Bone and joints of the pelvis unremarkable. 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 XR/XR hip LT w PEL1V IMPRESSION: LEFT HIP: Mild osteoarthritis. PELVIS: Left hip as above. 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
--- NOTE | ~2022-08-24 | CT_ITS ---
EXAMINATION: CT PELVIS WITHOUT CONTRAST CLINICAL INFORMATION: Severe left hip and pelvic pain COMPARISON: Hip radiographs earlier today, CT abdomen pelvis 04/25/2022 and 09/16/2014 TECHNIQUE: Helical scanning was performed with submillimeter collimation through the pelvis. Sagittal and coronal multiplanar 2-D reconstructions were obtained. This CT examination was performed using dose optimization techniques as appropriate, variously including the following: *Automated exposure control *Adjustment of mA and/or kV according to patient size (this includes techniques or standardized protocols for targeted exams where dose is matched to indication/reason for exam; i.e. extremities or head) *Use of iterative reconstruction technique DLP: mGy-cm FINDINGS: Degenerative changes are present in the spine as well as mild degenerative changes in both hips. No hip fractures are seen. A bone island is present in the right ischium. There is a linear sclerotic region in the left femoral head unchanged from prior studies dating back to 2014 that may be related to remote trauma. Calcific atherosclerotic changes are seen in the aorta and iliofemoral vessels. The prostate and seminal vesicles appear normal. The bladder is unremarkable. The visualized bowel appears normal. No free pelvic fluid. No retroperitoneal lymphadenopathy. No abdominal wall hernias. CT/CT pelvis wo IV con IMPRESSION: Degenerative changes are present in the spine and both hips. No hip fractures are seen. There is a linear sclerotic region in the left femoral head that may be related to remote trauma.
[2022-08-24 12:50] VITALS: BP 148/92; PULSE 65; O2SAT 97
--- NOTE | 2022-08-24 12:51 | ECG_ITS ---
Test Reason : weakness Blood Pressure : / mmHG Vent. Rate : 098 BPM Atrial Rate : 000 BPM P-R Int : 000 ms QRS Dur : 090 ms QT Int : 330 ms P-R-T Axes : 000 -15 -31 degrees QTc Int : 421 ms Atrial fibrillation with premature ventricular or aberrantly conducted complexes Low voltage QRS Cannot rule out Anterior infarct (cited on or before 24-AUG-2022) Abnormal ECG When compared with ECG of 27-APR-2022 00:08, No significant change was found Referred By: Isamar Guerrero Electronically Signed By:Gildardo Santiago
--- NOTE | 2022-08-24 13:17 | ED.WEAKNESS ---
HPI - Weakness General Chief complaint: General Medical <SHARON Hudson - Last Filed: 08/24/22 18:07> Stated complaint: L HIP PAIN PER EMS <SHARON Hudson Last Filed: 08/24/22 18:07> Time Seen by Provider: 08/24/22 12:50 <SHARON Hudson Last Filed: 08/24/22 18:07> Source: patient and EMS <SHARON Hudson Last Filed: 08/24/22 18:07> Mode of arrival: EMS <SHARON Hudson Last Filed: 08/24/22 18:07> Limitations: no limitations <SHARON Hudson Last Filed: 08/24/22 18:07> History of Present Illness HPI Narrative: 87 yo male with history of atrial fibrillation not on anticoagulation, frequent falls, prostate cancer, osteoporosis, who presents to the ER from home via EMS for c/o acute onset of left sided hip pain that started when he was sitting and watching TV last night at 5pm. He states the pain is in his left lateral hip and buttock, comes and goes and is sharp. Worse with ambulation and movement. He denies any recent falls. Last night he was trying to use his walker to get up to the bathroom when he had worsening pain and was having a hard time lifting the right leg. He was dragging the right leg and having pain in the left hip. Continued difficulty walking today so his told him to come to the ER for evaluation. He is currently on doxycycline for RLE cellulitis. He has VNA 3x a week for dressing changes. No fevers, foul smelling drainage or increased pain or swelling. No SOB or chest pain. <SHARON Hudson - Last Filed: 08/24/22 18:07> MD Complaint: focal weakness and difficulty walking <SHARON Hudson Last Filed: 08/24/22 18:07> Onset (ago): day(s) <SHARON Hudson Last Filed: 08/24/22 18:07> Duration: intermittent <SHARON Hudson Last Filed: 08/24/22 18:07> Location: LLE and RLE <SHARON Hudson Last Filed: 08/24/22 18:07> Migration: none <SHARON Hudson - Last Filed: 08/24/22 18:07> Severity: moderate <SHARON Hudson - Last Filed: 08/24/22 18:07> Quality: aching <SHARON uHdson - Last Filed: 08/24/22 18:07> Relieving factors: rest <SHARON Hudson - Last Filed: 08/24/22 18:07> Exacerbating factors: movement and exertion <SHARON Hudson - Last Filed: 08/24/22 18:07> Associated symptoms: denies other symptoms <SHARON Hudson - Last Filed: 08/24/22 18:07> Related Data Home medications: Home Medications Medication Instructions Recorded Confirmed aspirin 81 mg tablet,delayed 81 mg PO DAILY 08/24/22 08/24/22 release bumetanide 0.5 mg tablet 0.5 mg PO DAILY 08/24/22 08/24/22 doxycycline hyclate 100 mg capsule 100 mg PO BID 08/24/22 08/24/22 silver sulfadiazine 1 % topical 1 appl topical DAILY 08/24/22 08/24/22 cream <SHARON Hudson - Last Filed: 08/24/22 18:07> Allergies/Adverse reactions: Allergies Allergy/AdvReac Type Severity Reaction Status Date / Time No Known Allergies Allergy Verified 08/11/22 13:14 [No Known Allergies*] <SHARON Hudson - Last Filed: 08/24/22 18:07> Review of Systems Review of Systems: Yes all other systems are reviewed and are negative <SHARON Hudson - Last Filed: 08/24/22 18:07> PMFSH Past Medical History Medical History: Medical History Basal cell carcinoma Elevated blood pressure reading Essential hypertension Hx of bladder cancer Prostate cancer Recurrent falls Skin lesion of back Urethral stricture <SHARON Hudson - Last Filed: 08/24/22 18:07> Surgical History: Surgical History History of knee replacement History of surgery <SHARON Hudson - Last Filed: 08/24/22 18:07> Family History Family History: Family History Father No problems noted. Mother No problems noted. <SHARON Hudson - Last Filed: 08/24/22 18:07> Social History Social History: Social History Household Members: Spouse Housing: House Do you presently have visiting nurse or other home services: No Alcohol intake: never Patient Tobacco Use Status: Never used Tobacco Smoked in Last 30 Days: No Use of substances other than those prescribed or required for medical reasons: No Advance Directives: Yes Advance Directives on File: No service: Yes Current occupational status: retired <SHARON Hudson - Last Filed: 08/24/22 18:07> Physical Exam Vital Signs: Vital Signs: Last Vital Signs Temp 97.5 F 08/25/22 06:00 Pulse 84 08/25/22 07:46 Resp 14 08/25/22 07:46 BP 133/77 08/25/22 07:46 Pulse Ox 94 08/25/22 07:46 O2 Del Method 08/25/22 07:46 BMI result Body Mass Index 33.9 <SHARON Hudson - Last Filed: 08/24/22 18:07> Vital Signs: Last Vital Signs Temp 97.5 F 08/25/22 06:00 Pulse 84 08/25/22 07:46 Resp 08/25/22 07:46 BP 133/77 08/25/22 07:46 Pulse Ox 94 08/25/22 07:46 O2 Del Method 08/25/22 07:46 BMI result Body Mass Index 33.9 <Timoteo Ellison DO - Last Filed: 08/25/22 08:31> Appearance: Alert. Oriented X3. No acute distress. Eyes: Pupils equal, round and reactive to light. ENT: Pharynx normal. Neck: Normal inspection. Neck supple. CVS: Irregularly irregular, normal rate. Pulses normal. Respiratory: No respiratory distress. Breath sounds normal. Abdomen: Soft and nontender. +BS x4 Skin: Skin warm and dry. Normal skin color. Normal skin turgor. Extremities: left lateral hip and buttock with tenderness. passive ROM of bilateral hips are normal. RLE with chronic wounds of the anterior lower leg,once with serosanguinous drainage, few fluid filled bullae proximal lower leg. 1+ LLE edema, no wounds. no calf tenderness bilaterally. Neuro/psych: Oriented X 3. Strength is equal and symmetrical throughout. Some resistance of LE against gravity, however less in the left due to pain in the left hip. CN II-XII intact. Normal speech and cognition. Equal molasses preparer strength. Able to stand and pivot <SHARON Hudson - Last Filed: 08/24/22 18:07> NIH Stroke Scale Internal: Initial- Upon Arrival <SHARON Hudson Last Filed: 08/24/22 18:07> Level of Consciousness: Alert <SHARON Hudson - Last Filed: 08/24/22 18:07> Level of Consciousness Questions: Answers both questions correctly <SHARON Hudson - Last Filed: 08/24/22 18:07> Level of Consciousness Commands: Performs both tasks correctly <SHARON Hudson Last Filed: 08/24/22 18:07> Best Gaze: Normal <SHARON Hudson Last Filed: 08/24/22 18:07> Visual: No visual loss <SHARON Hudson - Last Filed: 08/24/22 18:07> Facial Palsy: Normal <SHARON Hudson Last Filed: 08/24/22 18:07> Motor Arm (Right): No drift <SHARON Hudson Last Filed: 08/24/22 18:07> Motor Arm (Left): No drift <SHARON Hudson Last Filed: 08/24/22 18:07> Motor Leg (Right): Some effort against gravity <SHARON Hudson Last Filed: 08/24/22 18:07> Motor Leg (Left): Some effort against gravity <SHARON Hudson Last Filed: 08/24/22 18:07> Limb Ataxia: Absent <SHARON Hudson Last Filed: 08/24/22 18:07> Sensory: Normal <SHARON Hudson - Last Filed: 08/24/22 18:07> Best Language: No aphasia <SHARON Hudson - Last Filed: 08/24/22 18:07> Dysarthia: Normal <SHARON Hudson - Last Filed: 08/24/22 18:07> Extinction and Inattention: No abnormality <SHARON Hudson - Last Filed: 08/24/22 18:07> Score: 4 <SHARON Hudson - Last Filed: 08/24/22 18:07> 4 <Timoteo Ellison DO - Last Filed: 08/25/22 08:31> Course Course Course Narrative: 87 yo male with history of afib,not on anticoagulation, history of frequent falls (none since Fall per patient), HTN, LE edema, LE cellulitis who presents to the ER for evaluation of left hip pain and difficulty walking. He reports weakness in the right leg and pain in the left hip with ambulation. Baseline walks with a walker and had difficulty this morning and last night at home. Adamantly denies a fall. Stroke scale is negative for EMS, nonfocal neurologically on arrival to the ER. His limitations in his lower extremity and gait seemed to be pain related and not weakness related. Will get CT scan, metabolic workup, x-rays for further evaluation. <SHARON Hudson - Last Filed: 08/24/22 18:07> Reevaluation(s) Reevaluation #1: Hip x-ray without any acute fracture, mild arthritis is noted. CT head without CVA or bleed. No evidence of any trauma. He was stood at the bedside with assist of 2, able to take 1 small step but had left pain pain. Will get CT pelvis to f/o occult fracture. <SHARON Hudson - Last Filed: 08/24/22 18:07> Reevaluation #2: CT hip without fracture. Labs otherwise unremarkable. UA negative for infection. BNP 199 but does not appear to be in volume overload or CHF. On bumex at home. RLE dressing taken down. cellultiis and chronic wounds present - will continue doxy and add augmentin to regimen. will have PT evaluate him for short term rehab. will consult case management. Physician observation started at 15:00. Patient placed in physician observation because patient is awaiting PT evaluation for possible STR and case management for possible placement. At the time observation was started patient's vital signs were stable. Patient is alert and oriented. Neuro exam is non-focal. CV: RRR and lungs are clear. He is out of bed to a recliner. Will continue to monitor. <SHARON Hudson - Last Filed: 08/24/22 18:07> Reevaluation #3: PT recommend short term rehab. Patient updated on plan of care. home meds restarted. will continue to monitor. <SHARON Hudson - Last Filed: 08/24/22 18:07> Consultations Consultation #1: Physician observation continues vital signs stable no issue overnight. We will continue to hold in the ED per [facility] policy <Timoteo Ellison DO - Last Filed: 08/25/22 08:31> Medications Administered Generic Name Dose Route Start Last Admin Trade Name Freq PRN Reason Stop Dose Admin Acetaminophen 975 mg 08/24/22 18:15 08/25/22 06:45 Acetaminophen 325 Mg Tablet PO 975 mg Q6H PINKY Administration Amoxicillin/Clavulanate Potassium 875 mg 08/24/22 21:00 08/25/22 08:09 Amoxicillin/Potassium Clav 875 Mg Tablet PO 875 mg BID PINKY Administration Aspirin 81 mg 08/25/22 09:00 08/25/22 08:09 Aspirin Enteric Coated 81 Mg Tablet. PO 81 mg DAILY PINKY Administration Bumetanide 0.5 mg 08/25/22 09:00 08/25/22 08:09 Bumetanide 1 Mg Tablet PO 0.5 mg DAILY PINKY Administration Protocol Doxycycline Monohydrate 100 mg 08/24/22 21:00 08/25/22 08:09 Doxycycline Monohydrate 100 Mg Capsule PO 100 mg BID PINKY Administration Silver Sulfadiazine 1 appl 08/25/22 09:00 08/25/22 08:11 Silver Sulfadiazine 1 % Cream 20 Gm Tube TOPICAL 1 appl DAILY PINKY Administration Discontinued Medications Generic Name Dose Route Start Last Admin Trade Name Freq PRN Reason Stop Dose Admin Acetaminophen 975 mg 08/24/22 14:06 08/24/22 14:44 Acetaminophen 325 Mg Tablet PO 08/24/22 14:07 975 mg ONCE ONE Administration <SHARON Hudson Last Filed: 08/24/22 18:07> Medications Administered Generic Name Dose Route Start Last Admin Trade Name Freq PRN Reason Stop Dose Admin Acetaminophen 975 mg 08/24/22 18:15 08/25/22 06:45 Acetaminophen 325 Mg Tablet PO 975 mg Q6H PINKY Administration Amoxicillin/Clavulanate Potassium 875 mg 08/24/22 21:00 08/25/22 08:09 Amoxicillin/Potassium Clav 875 Mg Tablet PO 875 mg BID PINKY Administration Aspirin 81 mg 08/25/22 09:00 08/25/22 08:09 Aspirin Enteric Coated 81 Mg Tablet.Dr PO 81 mg DAILY PINKY Administration Bumetanide 0.5 mg 08/25/22 09:00 08/25/22 08:09 Bumetanide 1 Mg Tablet PO 0.5 mg DAILY PINKY Administration Protocol Doxycycline Monohydrate 100 mg 08/24/22 21:00 08/25/22 08:09 Doxycycline Monohydrate 100 Mg Capsule PO 100 mg BID PINKY Administration Silver Sulfadiazine 1 appl 08/25/22 09:00 08/25/22 08:11 Silver Sulfadiazine 1 % Cream 20 Gm Tube TOPICAL 1 appl DAILY PINKY Administration Discontinued Medications Generic Name Dose Route Start Last Admin Trade Name Freq PRN Reason Stop Dose Admin Acetaminophen 975 mg 08/24/22 14:06 08/24/22 14:44 Acetaminophen 325 Mg Tablet PO 08/24/22 14:07 975 mg ONCE ONE Administration <Timoteo Ellison DO - Last Filed: 08/25/22 08:31> Medical Decision Making Medical Decision Making MDM Narrative: 87 yo male presenting with acute onset of nontraumatic left hip pain associated with difficulty ambulating and bilateral LE weakness that started last night around 5pm. NIH 0, nonfocal on arrival <SHARON Hudson - Last Filed: 08/24/22 18:07> Differential Diagnosis Differential Diagnoses: The differential diagnosis associated with the presentation includes <SHARON Hudosn Last Filed: 08/24/22 18:07> hip fracture, arthritis, tendonitis, pubic rami fracture, sciatica, osteomyelitis, hip flexor strain, bursiitis LE weakness could be due to CVA, referred pain from hip and difficulty ambulating due to compensation <SHARON Hudson Last Filed: 08/24/22 18:07> Admission/Observation Consideration of admission/observation: Escalation of care including admission/observation considered <SHARON Hudson - Last Filed: 08/24/22 18:07> Lab Data MDM Lab Attestation statement: I reviewed the patient's lab results. <SHARON Hudson - Last Filed: 08/24/22 18:07> hyperglycemia, stable normocytic anemia, no significant metabolic derrangement <SHARON Hudson - Last Filed: 08/24/22 18:07> Result Diagrams: 08/24/22 13:22 08/24/22 13:22 <SHARON Hudson - Last Filed: 08/24/22 18:07> Labs: Lab Results 08/24/22 08/24/22 08/24/22 Range/Units 13:22 13:22 13:22 WBC 8.3 (4.8-10.8) X10*3/uL RBC 4.42 L (4.60-5.80) X10*6/uL Hgb 13.2 L (14.0-18.0) g/dl Hct 40.4 L (42.0-52.0) % MCV 91.4 (80.0-98.0) fL MCH 29.9 (27.0-33.0) pg MCHC 32.7 (31.0-36.0) g/dl RDW 13.2 (11.0-16.0) % Plt Count 220 (160-400) X10*3/uL MPV 8.8 L (9.4-12.4) fL Immature Gran % (Auto) 0.4 (0.0-0.4) % Neut % (Auto) 75.5 H (45-73) % Lymph % (Auto) 13.6 L (20-40) % [place] % (Auto) 8.6 (2-11) % Eos % (Auto) 1.7 (0-4) % Baso % (Auto) 0.2 (0-2) % Lymph # (Auto) 1.1 L (1.2-4.9) X10*3/uL [place] # (Auto) 0.7 (0.1-1.2) X10*3/uL Eos # (Auto) 0.1 (0.0-0.4) X10*3/uL Baso # (Auto) 0.0 (0.0-0.2) X10*3/uL Abs Immat Gran (auto) 0.03 (0.00-0.03) X10*3/uL Absolute Neuts (auto) 6.3 (2.0-8.3) x10*3/uL Absolute Nucleated RBC 0.000 (0.0-0.012) X10*3/uL Nucleated RBC % (auto) 0.0 (0.0-0.2) /100WBC PT (10.0-13.1) SEC INR (0.9-1.1) Sodium 139 (135-145) mmol/L Potassium 3.5 (3.3-5.1) mmol/L Chloride 102 (96-108) mmol/L Carbon Dioxide 24 (22-29) mmol/L Anion Gap 17 (12-20) BUN 15 (9-16) mg/dL Creatinine 0.81 (0.5-1.4) mg/dL Estim Creat Clear Calc TNP Estimated GFR > 60 Random Glucose 205 H (60-115) mg/dL Calcium 8.8 (8.4-10.2) mg/dL Magnesium 1.9 (1.6-2.6) mg/dL Total Bilirubin 1.4 H (0.0-1.0) mg/dL Direct Bilirubin 0.4 (0.0-0.5) mg/dL AST 14 (5-37) U/L ALT 11 (0-40) U/L Alkaline Phosphatase 57 (39-117) U/L Total Creatine Kinase 43 (38-174) U/L Troponin I High Sens (<3.5-35.0) ng/L B-Natriuretic Peptide (<100) pg/mL Total Protein 5.9 L (6.5-8.0) g/dL Albumin 3.5 (3.5-5.0) g/dL TSH (0.32-4.0) uIU/mL Urine Color Urine Appearance Urine pH (5.0-9.0) Ur Specific [place] (1.005-1.025) Urine Protein (Neg-Trace) mg/dL Urine Glucose (UA) (Negative) mg/dL Urine Ketones (Negative) mg/dL Urine Blood (Negative) Urine Nitrite (Negative) Ur Leukocyte Esterase (Negative) COVID-19 ([facility]) Negative (Negative) COVID-19 Clin Com See Note 08/24/22 08/24/22 08/24/22 Range/Units 13:22 13:22 13:22 WBC (4.8-10.8) X10*3/uL RBC (4.60-5.80) X10*6/uL Hgb (14.0-18.0) g/dl Hct (42.0-52.0) % MCV (80.0-98.0) fL MCH (27.0-33.0) pg MCHC (31.0-36.0) g/dl RDW (11.0-16.0) % Plt Count (160-400) X10*3/uL MPV (9.4-12.4) fL Immature Gran % (Auto) (0.0-0.4) % Neut % (Auto) (45-73) % Lymph % (Auto) (20-40) % [place] % (Auto) (2-11) % Eos % (Auto) (0-4) % Baso % (Auto) (0-2) % Lymph # (Auto) (1.2-4.9) X10*3/uL [place] # (Auto) (0.1-1.2) X10*3/uL Eos # (Auto) (0.0-0.4) X10*3/uL Baso # (Auto) (0.0-0.2) X10*3/uL Abs Immat Gran (auto) (0.00-0.03) X10*3/uL Absolute Neuts (auto) (2.0-8.3) x10*3/uL Absolute Nucleated RBC (0.0-0.012) X10*3/uL Nucleated RBC % (auto) (0.0-0.2) /100WBC PT 12.7 (10.0-13.1) SEC INR 1.1 (0.9-1.1) Sodium (135-145) mmol/L Potassium (3.3-5.1) mmol/L Chloride (96-108) mmol/L Carbon Dioxide (22-29) mmol/L Anion Gap (12-20) BUN (9-16) mg/dL Creatinine (0.5-1.4) mg/dL Estim Creat Clear Calc Estimated GFR Random Glucose (60-115) mg/dL Calcium (8.4-10.2) mg/dL Magnesium (1.6-2.6) mg/dL Total Bilirubin (0.0-1.0) mg/dL Direct Bilirubin (0.0-0.5) mg/dL AST (5-37) U/L ALT (0-40) U/L Alkaline Phosphatase (39-117) U/L Total Creatine Kinase (38-174) U/L Troponin I High Sens 6.0 (<3.5-35.0) ng/L B-Natriuretic Peptide 199 H (<100) pg/mL Total Protein (6.5-8.0) g/dL Albumin (3.5-5.0) g/dL TSH (0.32-4.0) uIU/mL Urine Color Urine Appearance Urine pH (5.0-9.0) Ur Specific [place] (1.005-1.025) Urine Protein (Neg-Trace) mg/dL Urine Glucose (UA) (Negative) mg/dL Urine Ketones (Negative) mg/dL Urine Blood (Negative) Urine Nitrite (Negative) Ur Leukocyte Esterase (Negative) COVID-19 ([facility]) (Negative) COVID-19 Clin Com 08/24/22 08/24/22 Range/Units 13:22 14:32 WBC (4.8-10.8) X10*3/uL RBC (4.60-5.80) X10*6/uL Hgb (14.0-18.0) g/dl Hct (42.0-52.0) % MCV (80.0-98.0) fL MCH (27.0-33.0) pg MCHC (31.0-36.0) g/dl RDW (11.0-16.0) % Plt Count (160-400) X10*3/uL MPV (9.4-12.4) fL Immature Gran % (Auto) (0.0-0.4) % Neut % (Auto) (45-73) % Lymph % (Auto) (20-40) % [place] % (Auto) (2-11) % Eos % (Auto) (0-4) % Baso % (Auto) (0-2) % Lymph # (Auto) (1.2-4.9) X10*3/uL [place] # (Auto) (0.1-1.2) X10*3/uL Eos # (Auto) (0.0-0.4) X10*3/uL Baso # (Auto) (0.0-0.2) X10*3/uL Abs Immat Gran (auto) (0.00-0.03) X10*3/uL Absolute Neuts (auto) (2.0-8.3) x10*3/uL Absolute Nucleated RBC (0.0-0.012) X10*3/uL Nucleated RBC % (auto) (0.0-0.2) /100WBC PT (10.0-13.1) SEC INR (0.9-1.1) Sodium (135-145) mmol/L Potassium (3.3-5.1) mmol/L Chloride (96-108) mmol/L Carbon Dioxide (22-29) mmol/L Anion Gap (12-20) BUN (9-16) mg/dL Creatinine (0.5-1.4) mg/dL Estim Creat Clear Calc Estimated GFR Random Glucose (60-115) mg/dL Calcium (8.4-10.2) mg/dL Magnesium (1.6-2.6) mg/dL Total Bilirubin (0.0-1.0) mg/dL Direct Bilirubin (0.0-0.5) mg/dL AST (5-37) U/L ALT (0-40) U/L Alkaline Phosphatase (39-117) U/L Total Creatine Kinase (38-174) U/L Troponin I High Sens (<3.5-35.0) ng/L B-Natriuretic Peptide (<100) pg/mL Total Protein (6.5-8.0) g/dL Albumin (3.5-5.0) g/dL TSH 0.78 (0.32-4.0) uIU/mL Urine Color Yellow Urine Appearance Clear Urine pH 7.0 (5.0-9.0) Ur Specific [place] 1.010 (1.005-1.025) Urine Protein Negative (Neg-Trace) mg/dL Urine Glucose (UA) Negative (Negative) mg/dL Urine Ketones Negative (Negative) mg/dL Urine Blood Negative (Negative) Urine Nitrite Negative (Negative) Ur Leukocyte Esterase Negative (Negative) COVID-19 ([facility]) (Negative) COVID-19 Clin Com <SHARON Hudson - Last Filed: 08/24/22 18:07> Lab Results 08/24/22 08/24/22 08/24/22 Range/Units 13:22 13:22 13:22 WBC 8.3 (4.8-10.8) X10*3/uL RBC 4.42 L (4.60-5.80) X10*6/uL Hgb 13.2 L (14.0-18.0) g/dl Hct 40.4 L (42.0-52.0) % MCV 91.4 (80.0-98.0) fL MCH 29.9 (27.0-33.0) pg MCHC 32.7 (31.0-36.0) g/dl RDW 13.2 (11.0-16.0) % Plt Count 220 (160-400) X10*3/uL MPV 8.8 L (9.4-12.4) fL Immature Gran % (Auto) 0.4 (0.0-0.4) % Neut % (Auto) 75.5 H (45-73) % Lymph % (Auto) 13.6 L (20-40) % [place] % (Auto) 8.6 (2-11) % Eos % (Auto) 1.7 (0-4) % Baso % (Auto) 0.2 (0-2) % Lymph # (Auto) 1.1 L (1.2-4.9) X10*3/uL [place] # (Auto) 0.7 (0.1-1.2) X10*3/uL Eos # (Auto) 0.1 (0.0-0.4) X10*3/uL Baso # (Auto) 0.0 (0.0-0.2) X10*3/uL Abs Immat Gran (auto) 0.03 (0.00-0.03) X10*3/uL Absolute Neuts (auto) 6.3 (2.0-8.3) x10*3/uL Absolute Nucleated RBC 0.000 (0.0-0.012) X10*3/uL Nucleated RBC % (auto) 0.0 (0.0-0.2) /100WBC PT (10.0-13.1) SEC INR (0.9-1.1) Sodium 139 (135-145) mmol/L Potassium 3.5 (3.3-5.1) mmol/L Chloride 102 (96-108) mmol/L Carbon Dioxide 24 (22-29) mmol/L Anion Gap 17 (12-20) BUN 15 (9-16) mg/dL Creatinine 0.81 (0.5-1.4) mg/dL Estim Creat Clear Calc TNP Estimated GFR > 60 Random Glucose 205 H (60-115) mg/dL Calcium 8.8 (8.4-10.2) mg/dL Magnesium 1.9 (1.6-2.6) mg/dL Total Bilirubin 1.4 H (0.0-1.0) mg/dL Direct Bilirubin 0.4 (0.0-0.5) mg/dL AST 14 (5-37) U/L ALT 11 (0-40) U/L Alkaline Phosphatase 57 (39-117) U/L Total Creatine Kinase 43 (38-174) U/L Troponin I High Sens (<3.5-35.0) ng/L B-Natriuretic Peptide (<100) pg/mL Total Protein 5.9 L (6.5-8.0) g/dL Albumin 3.5 (3.5-5.0) g/dL TSH (0.32-4.0) uIU/mL Urine Color Urine Appearance Urine pH (5.0-9.0) Ur Specific [place] (1.005-1.025) Urine Protein (Neg-Trace) mg/dL Urine Glucose (UA) (Negative) mg/dL Urine Ketones (Negative) mg/dL Urine Blood (Negative) Urine Nitrite (Negative) Ur Leukocyte Esterase (Negative) COVID-19 ([facility]) Negative (Negative) COVID-19 Clin Com See Note 08/24/22 08/24/22 08/24/22 Range/Units 13:22 13:22 13:22 WBC (4.8-10.8) X10*3/uL RBC (4.60-5.80) X10*6/uL Hgb (14.0-18.0) g/dl Hct (42.0-52.0) % MCV (80.0-98.0) fL MCH (27.0-33.0) pg MCHC (31.0-36.0) g/dl RDW (11.0-16.0) % Plt Count (160-400) X10*3/uL MPV (9.4-12.4) fL Immature Gran % (Auto) (0.0-0.4) % Neut % (Auto) (45-73) % Lymph % (Auto) (20-40) % [place] % (Auto) (2-11) % Eos % (Auto) (0-4) % Baso % (Auto) (0-2) % Lymph # (Auto) (1.2-4.9) X10*3/uL [place] # (Auto) (0.1-1.2) X10*3/uL Eos # (Auto) (0.0-0.4) X10*3/uL Baso # (Auto) (0.0-0.2) X10*3/uL Abs Immat Gran (auto) (0.00-0.03) X10*3/uL Absolute Neuts (auto) (2.0-8.3) x10*3/uL Absolute Nucleated RBC (0.0-0.012) X10*3/uL Nucleated RBC % (auto) (0.0-0.2) /100WBC PT 12.7 (10.0-13.1) SEC INR 1.1 (0.9-1.1) Sodium (135-145) mmol/L Potassium (3.3-5.1) mmol/L Chloride (96-108) mmol/L Carbon Dioxide (22-29) mmol/L Anion Gap (12-20) BUN (9-16) mg/dL Creatinine (0.5-1.4) mg/dL Estim Creat Clear Calc Estimated GFR Random Glucose (60-115) mg/dL Calcium (8.4-10.2) mg/dL Magnesium (1.6-2.6) mg/dL Total Bilirubin (0.0-1.0) mg/dL Direct Bilirubin (0.0-0.5) mg/dL AST (5-37) U/L ALT (0-40) U/L Alkaline Phosphatase (39-117) U/L Total Creatine Kinase (38-174) U/L Troponin I High Sens 6.0 (<3.5-35.0) ng/L B-Natriuretic Peptide 199 H (<100) pg/mL Total Protein (6.5-8.0) g/dL Albumin (3.5-5.0) g/dL TSH (0.32-4.0) uIU/mL Urine Color Urine Appearance Urine pH (5.0-9.0) Ur Specific [place] (1.005-1.025) Urine Protein (Neg-Trace) mg/dL Urine Glucose (UA) (Negative) mg/dL Urine Ketones (Negative) mg/dL Urine Blood (Negative) Urine Nitrite (Negative) Ur Leukocyte Esterase (Negative) COVID-19 ([facility]) (Negative) COVID-19 Clin Com 08/24/22 08/24/22 Range/Units 13:22 14:32 WBC (4.8-10.8) X10*3/uL RBC (4.60-5.80) X10*6/uL Hgb (14.0-18.0) g/dl Hct (42.0-52.0) % MCV (80.0-98.0) fL MCH (27.0-33.0) pg MCHC (31.0-36.0) g/dl RDW (11.0-16.0) % Plt Count (160-400) X10*3/uL MPV (9.4-12.4) fL Immature Gran % (Auto) (0.0-0.4) % Neut % (Auto) (45-73) % Lymph % (Auto) (20-40) % [place] % (Auto) (2-11) % Eos % (Auto) (0-4) % Baso % (Auto) (0-2) % Lymph # (Auto) (1.2-4.9) X10*3/uL [place] # (Auto) (0.1-1.2) X10*3/uL Eos # (Auto) (0.0-0.4) X10*3/uL Baso # (Auto) (0.0-0.2) X10*3/uL Abs Immat Gran (auto) (0.00-0.03) X10*3/uL Absolute Neuts (auto) (2.0-8.3) x10*3/uL Absolute Nucleated RBC (0.0-0.012) X10*3/uL Nucleated RBC % (auto) (0.0-0.2) /100WBC PT (10.0-13.1) SEC INR (0.9-1.1) Sodium (135-145) mmol/L Potassium (3.3-5.1) mmol/L Chloride (96-108) mmol/L Carbon Dioxide (22-29) mmol/L Anion Gap (12-20) BUN (9-16) mg/dL Creatinine (0.5-1.4) mg/dL Estim Creat Clear Calc Estimated GFR Random Glucose (60-115) mg/dL Calcium (8.4-10.2) mg/dL Magnesium (1.6-2.6) mg/dL Total Bilirubin (0.0-1.0) mg/dL Direct Bilirubin (0.0-0.5) mg/dL AST (5-37) U/L ALT (0-40) U/L Alkaline Phosphatase (39-117) U/L Total Creatine Kinase (38-174) U/L Troponin I High Sens (<3.5-35.0) ng/L B-Natriuretic Peptide (<100) pg/mL Total Protein (6.5-8.0) g/dL Albumin (3.5-5.0) g/dL TSH 0.78 (0.32-4.0) uIU/mL Urine Color Yellow Urine Appearance Clear Urine pH 7.0 (5.0-9.0) Ur Specific [place] 1.010 (1.005-1.025) Urine Protein Negative (Neg-Trace) mg/dL Urine Glucose (UA) Negative (Negative) mg/dL Urine Ketones Negative (Negative) mg/dL Urine Blood Negative (Negative) Urine Nitrite Negative (Negative) Ur Leukocyte Esterase Negative (Negative) COVID-19 ([facility]) (Negative) COVID-19 Clin Com <Timoteo Ellison DO - Last Filed: 08/25/22 08:31> Independent Interpretation I performed an independent interpretation of an: EKG, Plain X-Ray and CT Scan <SHARON Hudson - Last Filed: 08/24/22 18:07> Interpretation: XR no appreciated hip fracture CT pelvis without acute fracture appreciated EKG afib, HR 98, PVCs noted, no ST segment elevations or depressions <SHARON Hudson Last Filed: 08/24/22 18:07> Radiology Impression Discussion of test interpretation with radiology: I have reviewed the radiologist's reading. <SHARON Hudson - Last Filed: 08/24/22 18:07> Radiologist Impression: CT/CT pelvis wo IV con IMPRESSION: Degenerative changes are present in the spine and both hips. No hip fractures are seen. There is a linear sclerotic region in the left femoral head that may be related to remote trauma. CT/CT head/brain wo IV con IMPRESSION: No acute intracranial hemorrhage or territorial infarction. XR/XR hip LT w PEL1V IMPRESSION: LEFT HIP: Mild osteoarthritis. ? PELVIS: Left hip as above. 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 History obtained from or confirmed by: EMS <SHARON Hudson Last Filed: 08/24/22 18:07> External Record Review External record reviewed: Inpatient record, Office record, Outpatient record, Prior outpatient labs and Prior outpatient radiology <SHARON Hudson Last Filed: 08/24/22 18:07> Tests considered The following testing was considered but not selected: CTA head/neck considered given report of RLE weakness however on exam he has no significant focal weakness that would be consistent with large vessel occlusion <SHARON Hudson Last Filed: 08/24/22 18:07> Prescription Management I considered prescription management with: Pain Medication <SHARON Hudson Last Filed: 08/24/22 18:07> Chronic Conditions Patient?s care impacted by: Hypertension and Other (arthritis ) <SHARON Hudson Last Filed: 08/24/22 18:07> Critical Care Time Critical Care Time Critical Care Time: No <SHARON Hudson Last Filed: 08/24/22 18:07> Discharge Plan Discharge Clinical Impression: Acute hip pain, Cellulitis of right leg <SHARON Hudson - Last Filed: 08/24/22 18:07> Patient Disposition: Still a Patient <SHARON Hudson - Last Filed: 08/24/22 18:07> Instructions: Hip Pain (ED) <SHARON Hudson - Last Filed: 08/24/22 18:07> Prescriptions: No Action silver sulfadiazine 1 % cream 1 appl TOPICAL DAILY doxycycline hyclate 100 mg capsule 100 mg PO BID aspirin 81 mg Tablet,Delayed Release (Dr/Ec) 81 mg PO DAILY bumetanide 0.5 mg tablet 0.5 mg PO DAILY <SHARON Hudson - Last Filed: 08/24/22 18:07>
[2022-08-24 13:31] LABS: MANUAL DIFF FLAG NO
[2022-08-24 13:36] LABS: Basophils Percent Auto 0.2 % (0-2); Eosinophils Absolute Auto 0.1 X10*3/uL (0.0-0.4); Eosinophils Percent Auto 1.7 % (0-4); Hematocrit 40.4 % (42.0-52.0); Hemoglobin 13.2 g/dl (14.0-18.0); Imm Gran Abs Auto 0.03 X10*3/uL (0.00-0.03); Imm Gran Pct Auto 0.4 % (0.0-0.4); Lymphocytes Absolute Auto 1.1 X10*3/uL (1.2-4.9); Lymphocytes Percent Auto 13.6 % (20-40); Mean Corpuscular HGB Conc 32.7 g/dl (31.0-36.0); Mean Corpuscular Hemoglobin 29.9 pg (27.0-33.0); Mean Corpuscular Volume 91.4 fL (80.0-98.0); Mean Platelet Volume 8.8 fL (9.4-12.4); Monocytes Absolute Auto 0.7 X10*3/uL (0.1-1.2); Monocytes Percent Auto 8.6 % (2-11); Neutrophils Absolute Auto 6.3 x10*3/uL (2.0-8.3); Neutrophils Percent Auto 75.5 % (45-73); Platelet Count 220 X10*3/uL (160-400); Red Blood Count 4.42 X10*6/uL (4.60-5.80); Red Cell Distribution Width 13.2 % (11.0-16.0); White Blood Count 8.3 X10*3/uL (4.8-10.8)
[2022-08-24 13:39] LABS: INTERNATIONAL NORM RATIO 1.1 (0.9-1.1); Prothrombin Time 12.7 SEC (10.0-13.1)
[2022-08-24 13:48] LABS: COVID-19 Test Negative (Negative); IDNOW Serial# 55D5AD1C
[2022-08-24 13:55] LABS: Alanine Aminotransferase 11 U/L (0-40); Albumin Level 3.5 g/dL (3.5-5.0); Alkaline Phosphatase 57 U/L (39-117); Anion Gap 17 (12-20); Aspartate Amino Transferase 14 U/L (5-37); Bilirubin Direct 0.4 mg/dL (0.0-0.5); Bilirubin Total 1.4 mg/dL (0.0-1.0); Blood Urea Nitrogen 15 mg/dL (9-16); Calcium 8.8 mg/dL (8.4-10.2); Carbon Dioxide 24 mmol/L (22-29); Chloride 102 mmol/L (96-108); Estimated Glomerular Filt Rate > 60; Glucose Random 205 mg/dL (60-115); Magnesium 1.9 mg/dL (1.6-2.6); Potassium 3.5 mmol/L (3.3-5.1); Sodium 139 mmol/L (135-145); Total Protein 5.9 g/dL (6.5-8.0)
[2022-08-24 13:58] VITALS: BP 151/74; PULSE 77; RESP 16; TEMP 36.8; O2SAT 98; BMI 33.9
[2022-08-24 14:04] LABS: B Type Natriuretic Peptide 199 pg/mL (<100)
[2022-08-24 14:16] LABS: TSH reflex Free T4 0.78 uIU/mL (0.32-4.0)
[2022-08-24 14:41] LABS: Appearance Urine Clear; Color Urine Yellow; Glucose Urine UA Negative (Negative); Leukocyte Esterase Urine Negative (Negative); Nitrite Urine Negative (Negative); Urine Blood Negative (Negative); Urine Ketones Negative (Negative); Urine Protein Negative (Neg-Trace)
[2022-08-24] MEDS: Acetaminophen 325 MG TABLET 975 MG PO ×2 (14:44→20:49)
[2022-08-24 14:57] VITALS: BP 151/74; PULSE 77; O2SAT 98
--- NOTE | 2022-08-24 16:22 | PC.NURSE ---
pt up to bedside recliner with assist of 2. he returned from ct scan. continues to state right hip pain
--- NOTE | 2022-08-24 16:43 | PHA.MEDREC ---
Pharmacy Consult ? Medication Reconciliation Pharmacy has completed the medication reconciliation.
[2022-08-24 16:49] VITALS: BP 148/68; PULSE 85; RESP 18; TEMP 36.6; O2SAT 96
--- NOTE | 2022-08-24 19:22 | MHC.CM.ED ---
CM met with patient at the request of Dr. Gudino. A&Ox4. Independent. Very pleasant gentleman in need of STR. PT recommends STR and patient is agreeable. [facility]st choice is [facility], 2nd choice is [facility] and 3rd choice is [facility]. Pt has [facility] Mon-Wed- Fri for drsg on RLL-cellulitis. [facility] notified of STR via [facility]. Will notify accepting facility of wound care needs. Will need to alert discharging provider in the morning. Vax x3. No HCP on file. HCP reviewed, completed and signed. Copies given. Uploaded into [facility] and [facility]. HCP/ Isabel Alba ([phone]). Pt is a [place] [employer] . Has no vet services. D/C plan: STR. Awaiting bed offers. CM will follow for discharge planning.
[2022-08-24] MEDS: Doxycycline Monohydrate 100 MG CAPSULE PO (20:48)
[2022-08-24] MEDS: Amoxicillin/Potassium Clav 875 MG TABLET PO (20:48)
--- NOTE | 2022-08-24 21:09 | PC.NURSE ---
Pt resting comfortably in a recliner at this time, reporting no pain or shortness of breath. Pt was assisted to the bathroom via stand and pivot with one assist
--- NOTE | 2022-08-24 22:22 | PC.NURSE ---
Pt was moved from recliner to his bed via stand and pivot. Pt's dentures were placed in a cup with cleanser and a pt label on it at the bedside. Pt was assisted with the urinal then positioned in bed. Pt reporting no pain, no new orders at this time.
[2022-08-25 00:20] VITALS: BP 148/69; PULSE 72; RESP 18; TEMP 36.6; O2SAT 99
[2022-08-25 03:14] VITALS: BP 158/80; PULSE 82; RESP 18; O2SAT 95
[2022-08-25 06:00] VITALS: BP 133/81; PULSE 73; RESP 16; TEMP 36.4; O2SAT 96
[2022-08-25] MEDS: Acetaminophen 325 MG TABLET 975 MG PO (06:45)
[2022-08-25 07:46] VITALS: BP 133/77; PULSE 84; RESP 14; O2SAT 94
[2022-08-25] MEDS: Bumetanide 1 MG TABLET 0.5 MG PO (08:09)
[2022-08-25] MEDS: Doxycycline Monohydrate 100 MG CAPSULE PO (08:09)
[2022-08-25] MEDS: Amoxicillin/Potassium Clav 875 MG TABLET PO (08:09)
[2022-08-25] MEDS: Aspirin Enteric Coated 81 MG TABLET.DR PO (08:09)
[2022-08-25] MEDS: Silver Sulfadiazine 1 % Cream 20 GM TUBE 1 APPL TOPICAL (08:11)
--- NOTE | 2022-08-25 09:31 | PC.NURSE ---
Right lower extremity dressing changed. Patient remains sitting on edge of bed. Using commode at bedside. Alert and oriented x3, speech is clear, able to make needs known. Still awaiting placement.
--- NOTE | 2022-08-25 10:42 | MHC.CM.ED ---
Patient remains in ER. [facility]. They are able to offer a bed. Patient can leave at 11am. Mayank BONILLA booked. [facility] with chart. Patient, Jennifer MCCALLUM and Isamar HERRERA aware. T/W offered to notify patient's . Patient states his is currently at the dentist and he will let her know. Continue to monitor for d/c needs.
--- NOTE | 2022-08-25 11:25 | MHC.EDTECH ---
ETA FOR [employer] IS 11AM PER LETY LETY HERE @ THIS TIME FOR [employer]
--- NOTE | 2022-08-25 11:29 | PC.NURSE ---
Report called and given to Montse MCCALLUM at [facility]. EMS into transport patient to facility. Patient agreeable to transfer at this time.
== END 2022-08-25 11:37 ==
PROVIDERS: Physician Assistant; Emergency Provider Emergency Medicine; PCP Internal Medicine
DX: L03.115 Cellulitis of right lower limb (principal); M25.552 Pain in left hip; R06.02 Shortness of breath; R51.9 Headache, unspecified; I48.91 Unspecified atrial fibrillation; Z20.822 Contact with and (suspected) exposure to COVID-19; Z20.828 Contact with and (suspected) exposure to other viral communicable diseases; Z79.899 Other long term (current) drug therapy; Z79.01 Long term (current) use of anticoagulants; Z91.81 History of falling
CPT/HCPCS: 36415; 70450; 72192; 73502; 80048; 80076; 81003; 82550; 83735; 83880; 84443; 84484; 85025; 85610; 87635; 93005; 97162; 99285

== ENCOUNTER 2022-09-23 10:05 | Outpatient (REF) | payer MEDICARE, SELFPAY ==
[2022-09-23 10:55] LABS: MANUAL DIFF FLAG NO
[2022-09-23 11:02] LABS: Basophils Absolute Auto 0.1 X10*3/uL (0.0-0.2); Basophils Percent Auto 0.5 % (0-2); Eosinophils Absolute Auto 0.5 X10*3/uL (0.0-0.4); Eosinophils Percent Auto 4.8 % (0-4); Hematocrit 40.1 % (42.0-52.0); Hemoglobin 12.8 g/dl (14.0-18.0); Imm Gran Abs Auto 0.05 X10*3/uL (0.00-0.03); Imm Gran Pct Auto 0.5 % (0.0-0.4); Lymphocytes Absolute Auto 1.5 X10*3/uL (1.2-4.9); Lymphocytes Percent Auto 16.2 % (20-40); Mean Corpuscular HGB Conc 31.9 g/dl (31.0-36.0); Mean Corpuscular Hemoglobin 29.5 pg (27.0-33.0); Mean Corpuscular Volume 92.4 fL (80.0-98.0); Mean Platelet Volume 9.5 fL (9.4-12.4); Monocytes Percent Auto 10.5 % (2-11); Neutrophils Absolute Auto 6.3 x10*3/uL (2.0-8.3); Neutrophils Percent Auto 67.5 % (45-73); Platelet Count 256 X10*3/uL (160-400); Red Blood Count 4.34 X10*6/uL (4.60-5.80); Red Cell Distribution Width 13.1 % (11.0-16.0); White Blood Count 9.3 X10*3/uL (4.8-10.8)
[2022-09-23 11:08] LABS: Estimated Average Glucose 151 mg/dL; Hemoglobin A1c % 6.9 %
[2022-09-23 11:37] LABS: B Type Natriuretic Peptide 202 pg/mL (<100)
[2022-09-23 12:11] LABS: Alanine Aminotransferase 9 U/L (0-40); Albumin Level 3.7 g/dL (3.5-5.0); Alkaline Phosphatase 82 U/L (39-117); Anion Gap 13 (12-20); Aspartate Amino Transferase 14 U/L (5-37); Bilirubin Total 1.5 mg/dL (0.0-1.0); Blood Urea Nitrogen 13 mg/dL (9-16); Calcium 9.8 mg/dL (8.4-10.2); Carbon Dioxide 33 mmol/L (22-29); Chloride 104 mmol/L (96-108); Estimated Glomerular Filt Rate > 60; Glucose Random 124 mg/dL (60-115); Iron 77 mcg/dL (45-160); Percent Iron Saturation 30 % (15-50); Potassium 3.9 mmol/L (3.3-5.1); Sodium 146 mmol/L (135-145); Total Iron Binding Capacity 257 mcg/dL (228-428); Total Protein 6.2 g/dL (6.5-8.0); Unsaturated Iron Binding 180 ug/dL
== END 2022-09-23 10:06 | disposition home or self-care (01) ==
LOC: HO.10HDL 10:05
PROVIDERS: Visit Provider Internal Medicine
DX: I48.91 Unspecified atrial fibrillation (principal); I11.0 Hypertensive heart disease with heart failure; I50.9 Heart failure, unspecified; R60.9 Edema, unspecified; R73.03 Prediabetes
CPT/HCPCS: 36415; 80053; 83036; 83540; 83880; 85025

== ENCOUNTER → 2022-11-03 09:34 | Outpatient (REF) | payer MEDICARE, SELFPAY ==
--- NOTE | ~2022-11-03 | NM_ITS ---
EXAMINATION: NM BONE SCAN OF THE WHOLE BODY CLINICAL INFORMATION: Malignant neoplasm of prostate. Personal history of bilateral knee replacement in 1998 and 1999. History of prostate surgery 10+ years ago. No history of bone pain. History of fall last year. COMPARISON: Most recent prior whole-body bone scan done on 02/27/[address] scan of the abdomen and pelvis done on 04/25/[address] scan of the head done on 08/24/[address] scan of the pelvis also done on 08/24/2022. TECHNIQUE: Multiple gamma scintillation camera images of the whole body were performed 3 hours following the intravenous administration of 32 mCi Tc-99m MDP. The radiotracer was injected through right hand superficial vein without complications. FINDINGS: In the head, asymmetric focal increased radiotracer activity is noted at right frontal skull, appears slightly more pronounced since the most recent prior study dated 02/27/2021. When correlating with the most recent prior CT of the head, likely represent changes secondary to asymmetric right frontal hyperostosis. In the thoracic cage and upper extremities, intense abnormal increased radiotracer activities are present along the medial end of both clavicles near the sternoclavicular joints (right greater than left). The left-sided finding is new since the prior study dated 02/27/2021. The appearance is nonspecific however, more likely to be related to arthritic and/or posttraumatic changes. Mild increased linear asymmetric radiotracer activity involving the anterior aspect of the left lower hemithorax with involvement of 2 adjacent ribs likely represent posttraumatic changes, appear new since the prior study dated 02/27/2021. In the spine, interval development of linear increased radiotracer activity is present at likely T6 vertebral body, most consistent with interval development of compression fracture, of indeterminate etiology and chronicity. No radiographic correlation is available. The remainder of the spine otherwise appear unremarkable, unchanged. In the pelvis, no discrete suspicious focal abnormalities present, unchanged. In the lower extremities, postsurgical changes of bilateral knee prosthesis, unchanged. Mild focal increased radiotracer activity around the right ankle and left midfoot likely represent posttraumatic and/or arthritic changes, unchanged. No other definite bony abnormalities are noted. The urinary bladder and faint visualization of both kidneys are noted. NM/NM bone scan whole body IMPRESSION: 1. Interval development of linear abnormal increased radiotracer activity is present involving the thoracic spine, likely T6 vertebral body, new since the most recent prior whole-body bone scan dated 02/27/2021, of indeterminate etiology. There are no radiographic study available for comparison. Correlation with plain radiographs and/or MRI as appropriate may be considered for further clarification. Follow-up whole-body PSMA PET CT study may also be considered, if clinically appropriate. 2. Intense abnormal increased radiotracer activities around medial end of both clavicles near the sternoclavicular joints, appear stable on the right and new on the left since the prior study dated 02/27/2021, likely represent posttraumatic and/or arthritic changes. 3. Asymmetric focal increased radiotracer activity involving the right frontal skull, appear more pronounced since the prior study dated 02/27/2021. When correlating with the recent CT of the head dated 2022, the finding is most consistent with asymmetric right frontal hyperostosis.
== END ==
LOC: HO.NUCMED 09:34
PROVIDERS: PCP Internal Medicine; Visit Provider Urology
DX: C61 Malignant neoplasm of prostate (principal)
CPT/HCPCS: 78306; A9503

== ENCOUNTER → 2022-12-07 14:20 | Outpatient (BNVA) | payer MEDICARE, SELFPAY | PROVIDERS: PCP Internal Medicine; Visit Provider Urology | DX: C61 Malignant neoplasm of prostate (principal); M81.8 Other osteoporosis without current pathological fracture; T38.7X5A Adverse effect of androgens and anabolic congeners, initial encounter | CPT/HCPCS: 99212 ==

== ENCOUNTER 2023-02-21 08:32 | Outpatient (REF) | payer MEDICARE, SELFPAY ==
[2023-02-21 11:52] LABS: Prostate Specific Antigen < 0.10 ng/mL (<0.05-4.0)
[2023-02-25 14:58] LABS: Testosterone, Total 2 ng/dL (250-1100)
== END 2023-02-21 08:33 | disposition home or self-care (01) ==
LOC: HO.10HDL 08:32
PROVIDERS: Visit Provider Urology
DX: Z12.5 Encounter for screening for malignant neoplasm of prostate (principal); C61 Malignant neoplasm of prostate
CPT/HCPCS: 36415; 84153; 84403

== ENCOUNTER 2023-03-01 08:04 | Outpatient (REF) | payer MEDICARE, SELFPAY ==
[2023-03-01 10:44] LABS: MANUAL DIFF FLAG NO
[2023-03-01 10:51] LABS: Basophils Absolute Auto 0.1 X10*3/uL (0.0-0.2); Basophils Percent Auto 0.7 % (0-2); Eosinophils Absolute Auto 0.2 X10*3/uL (0.0-0.4); Eosinophils Percent Auto 3.2 % (0-4); Hematocrit 40.1 % (42.0-52.0); Hemoglobin 12.9 g/dl (14.0-18.0); Imm Gran Abs Auto 0.03 X10*3/uL (0.00-0.03); Imm Gran Pct Auto 0.4 % (0.0-0.4); Lymphocytes Absolute Auto 1.9 X10*3/uL (1.2-4.9); Lymphocytes Percent Auto 27.5 % (20-40); Mean Corpuscular HGB Conc 32.2 g/dl (31.0-36.0); Mean Corpuscular Hemoglobin 29.5 pg (27.0-33.0); Mean Corpuscular Volume 91.6 fL (80.0-98.0); Mean Platelet Volume 9.7 fL (9.4-12.4); Monocytes Absolute Auto 0.7 X10*3/uL (0.1-1.2); Monocytes Percent Auto 9.4 % (2-11); Neutrophils Absolute Auto 4.1 x10*3/uL (2.0-8.3); Neutrophils Percent Auto 58.8 % (45-73); Platelet Count 241 X10*3/uL (160-400); Red Blood Count 4.38 X10*6/uL (4.60-5.80); Red Cell Distribution Width 12.7 % (11.0-16.0)
[2023-03-01 10:56] LABS: Estimated Average Glucose 143 mg/dL; Hemoglobin A1c % 6.6 % (<6.0)
[2023-03-01 11:03] LABS: Alanine Aminotransferase 11 U/L (0-40); Albumin Level 3.6 g/dL (3.5-5.0); Alkaline Phosphatase 64 U/L (39-117); Anion Gap 13 (12-20); Aspartate Amino Transferase 14 U/L (5-37); Bilirubin Total 1.4 mg/dL (0.0-1.0); Blood Urea Nitrogen 13 mg/dL (9-16); Calcium 9.4 mg/dL (8.4-10.2); Carbon Dioxide 30 mmol/L (22-29); Chloride 99 mmol/L (96-108); Estimated Glomerular Filt Rate > 60; Glucose Random 164 mg/dL (60-115); Potassium 2.9 mmol/L (3.3-5.1); Sodium 139 mmol/L (135-145); Total Protein 6.9 g/dL (6.5-8.0)
== END 2023-03-01 08:05 | disposition home or self-care (01) ==
LOC: HO.10HDL 08:04
PROVIDERS: Visit Provider Internal Medicine
DX: E11.9 Type 2 diabetes mellitus without complications (principal); I48.91 Unspecified atrial fibrillation; I50.9 Heart failure, unspecified; D64.9 Anemia, unspecified
CPT/HCPCS: 36415; 80053; 83036; 85025

== ENCOUNTER 2023-03-09 12:47 | Outpatient (AMB) | payer MEDICARE, SELFPAY ==
--- NOTE | 2023-03-09 12:59 | A.OFFVIS_ITS ---
Intake Intake Visit Reasons: PSA/Testosterone/Prolia(set) Intake Note: Patient is present for Follow Up Labs and Prolia injection Urology Med: None Antibiotic Allergy: None Blood Thinner: Aspirin Pharmacy: [facility] Allergies No Known Allergies [No Known Allergies*] Allergy (Verified 12/07/22 14:42) Medication List - Last Reconciled 03/09/23 by Kole Castro MD aspirin 81 mg PO DAILY bumetanide 0.5 mg PO DAILY calcium citrate-vitamin D3 315 mg-6.25 mcg (250 unit) (Citracal + Vitamin D Maximum) 2 tabs PO DAILY 90 days doxycycline hyclate 100 mg PO BID silver sulfadiazine 1% 1 appl topical DAILY HPI HPI Comments History of Present Illness Details Prieto is a pleasant male. He is a patient of Dr. Helm. He is seen for the following urologic conditions - prostate cancer - osteoporosis Lab work stable 4 month follow-up DEXA scan and repeat l abs 03/02 PSA < 0.1, T 2 Prolia today Labs 08/02 PSA <0.1 T 3 - Bone scan with compression fracture Last hormone shot September 2021, has been on suppression for 2 years. Prostate cancer grade group 5 initial therapy hormonal 06/25 - Last GnRH injection 09/29 08/02 stop Xtandi and prednisone, moved t o intermittent therapy Diagnosed with Dr. Aly Initial pathology 06/25 [place] 8 - 5 out 12 cores high volume Initial PSA 500 Primary therapy - GnRH with Casodex Slow rising PSA up to 2.7 - Xtandi started (07/31) Current therapy - GnRH with Xtandi 03/31 PSA 0.8, T 11, 09/28 < 0.5, 02/28 <0. 1 T <10, 06/30 <0.1 T <1, 09/29 <0.1 <1, 12/30 <0.1 T <1, 04/01 P <0.1 T <1 Imaging - 02/28 bone scan NAD - 02/28 DEXA scan osteoporosis - 09/30 bone scan with T6 compression fracture Addition of calcium supplements PFSH Medical History Basal cell carcinoma Elevated blood pressure reading Essential hypertension Hx of bladder cancer Prostate cancer Recurrent falls Skin lesion of back Urethral stricture Surgical History History of knee replacement History of surgery Family History Father No problems noted. Mother No problems noted. Social History Household Members: Spouse Housing: House Do you presently have visiting nurse or other home services: No Alcohol intake: never Patient Tobacco Use Status: Never used Tobacco service: Yes Current occupational status: retired Review of Systems Const Denies chills and Denies fever(s) Card Reports no additional complaints and Denies syncope Resp Denies cough GI Denies abdominal pain and Denies heartburn Reports as per HPI and Denies change in libido Neuro Denies syncope Psych Denies change in libido Endo Denies change in libido Physical Exam Const General: cooperative, healthy appearing, comfortable and no acute distress Orientation/consciousness: patient oriented x3 HEENT Face and sinus: Yes normal facial exam Mouth: moist mucous membranes Neck Neck: Yes normal visual inspection, Yes full ROM and Yes trachea midline Chest Chest palpation & inspection: normal inspection of the chest Resp Effort & Inspection: normal respiratory effort, able to speak in complete sentences and no respiratory distress GI Inspection: Yes normal to inspection Back/Spine/Pelvis Cervical Spine: normal cervical lordosis Thoracic/Lumbar Spine: thoracic and lumbar spine normal to inspection Skin General skin exam: no rashes or lesions noted Neuro General: patient oriented x3, gait normal, tone normal and moves all extremities Extrem General: Yes normal to inspection and Yes capillary refill normal Office Meds Prolia 60 mg/mL subcutaneous syringe Performing Provider: Kole Castro MD Performing Location: [facility] [place] [facility] Administered by: Winnie Mensah RN on 03/09/23 13:31 Dose Route Admin Location Dispensed Lot Number Expiration Date [place] Government Sales Manager 60 mg subcut left arm 1 mL [id number] 03/10/25 68475-508-33 [employer] Assessment & Plan Assessment & Plan (1) Prostate cancer: Comment: June 2016 multiple core [place] 8 Code(s): C61 - Malignant neoplasm of prostate (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: Code(s): M81.8 - Other osteoporosis without current pathological fracture; T38.7X5A - Adverse effect of androgens and anabolic congeners, initial encounter Plan Four month follow-up Orders: Orders [facility]B Denosumab Injection Practice Supplied 03/09/23 M81.8 - Other osteoporosis without current pathological fracture, T38.7X5A - Adverse effect of androgens and anabolic congeners, initial encounter XR DEXA axial skeleton 4 Months M85.80 - Other specified disorders of bone density and structure, unspecified site, C61 - Malignant neoplasm of prostate Prostate Specific Antigen 4 Months C61 - Malignant neoplasm of prostate Testosterone, Total 4 Months C61 - Malignant neoplasm of prostate Patient Instructions: Imaging studies, laboratory and physical exam results were discussed and reviewed in detail. No major barriers to patient understanding were identified. An opportunity to ask questions regarding the treatment plan was provided. All questions were answered. The patient expressed understanding and agreement with the above treatment plan. The patient is aware they should contact our office by phone for worsening of their current condition or the appearance of new urologic symptoms. Compliance is encouraged with any medications and followup testing that is ordered. It is a privilege to participate in the urologic care of your patient. If you have any questions or concerns regarding treatment for the above conditions, or other urologic issues, please do not hesitate to contact me. The office telephone contact is [phone]. This note is constructed using voice recognition software. While every effort has been made to ensure accuracy scouring train operator errors may have been included. Yours sincerely, Dr Kole Castro MD, MICA [facility] - Urology Providers of Expert, Compassionate Care for the Genitourinary System Coding Level of Care Code Est Pt Level 3 (63048) Diagnoses Prostate cancer C61 Osteoporosis due to androgen therapy M81.8; T38.7X5A
== END 2023-03-09 13:35 | disposition home or self-care (01) ==
LOC: HO.HUSH 12:47
PROVIDERS: PCP Internal Medicine; Visit Provider Urology
DX: C61 Malignant neoplasm of prostate (principal); M81.8 Other osteoporosis without current pathological fracture; T38.7X5A Adverse effect of androgens and anabolic congeners, initial encounter
CPT/HCPCS: 99213

== ENCOUNTER → 2023-03-09 12:47 | Outpatient (BNVA) | payer MEDICARE, SELFPAY | PROVIDERS: PCP Internal Medicine; Visit Provider Urology | DX: C61 Malignant neoplasm of prostate (principal); M81.8 Other osteoporosis without current pathological fracture; T38.7X5A Adverse effect of androgens and anabolic congeners, initial encounter; Z79.82 Long term (current) use of aspirin | CPT/HCPCS: 96372; 99212; J0897 ==

== ENCOUNTER 2023-07-14 08:10 | Outpatient (REF) | payer MEDICARE, SELFPAY ==
[2023-07-23 14:09] LABS: Testosterone, Total <1 ng/dL (250-1100)
== END 2023-07-14 08:11 | disposition home or self-care (01) ==
LOC: HO.10HDL 08:10
PROVIDERS: Visit Provider Urology
DX: C61 Malignant neoplasm of prostate (principal); Z12.5 Encounter for screening for malignant neoplasm of prostate
CPT/HCPCS: 36415; 84153; 84403

== ENCOUNTER 2023-07-15 13:09 | Outpatient (AMB) | payer MEDICARE, SELFPAY ==
--- NOTE | 2023-07-15 13:13 | MHC.OFFVIS ---
Intake Intake Visit Reasons: 4m/PSA (PSA?) Intake Note: Patient is Present for Follow Up Urology Medication: none Antibiotic Allergies: None Blood Thinners: Aspirin Allergies No Known Allergies [No Known Allergies*] Allergy (Verified 07/15/23 13:17) Medication List - Last Reconciled 07/15/23 by Kole Castro MD aspirin 81 mg PO DAILY bumetanide 0.5 mg PO DAILY calcium citrate-vitamin D3 315 mg-6.25 mcg (250 unit) (Citracal + Vitamin D Maximum) 2 tabs PO DAILY 90 days doxycycline hyclate 100 mg PO BID silver sulfadiazine 1% 1 appl topical DAILY HPI HPI Comments History of Present Illness Details Prieto is a pleasant male. He is a patient of Dr. Helm. He is seen for the following urologic conditions - prostate cancer - osteoporosis Lab work stable 4 month follow-up DEXA scan and repeat labs 08/03 <0.1, T 2 Bone Scan stable - no cancer 03/02 PSA < 0.1, T 2 Prolia today 08/02 PSA <0.1 T 3 - Bone scan with compression fracture Last hormone shot September 2021, has been on suppression for 2 years. Prostate cancer grade group 5 initial therapy hormonal 06/25 - Last GnRH injection 09/29 08/02 stop Xtandi and prednisone, moved to intermittent therapy Diagnosed with Dr. Aly Initial pathology 06/25 [place] 8 - 5 out 12 cores high volume Initial PSA 500 Primary therapy - GnRH with Casodex Slow rising PSA up to 2.7 - Xtandi started (07/31) Current therapy - GnRH with Xtandi 03/31 PSA 0.8, T 11, 09/28 < 0.5, 02/28 <0.1 T <10, 06/30 <0.1 T <1, 09/29 <0.1 <1, 12/30 <0.1 T <1, 04/01 P <0.1 T <1 Imaging - 02/28 bone scan NAD - 03/01 DEXA scan osteoporosis - 09/30 bone scan with T6 compression fracture Addition of calcium supplements PFSH Medical History Recurrent falls Essential hypertension Urethral stricture Prostate cancer Elevated blood pressure reading Hx of bladder cancer Basal cell carcinoma Skin lesion of back Surgical History History of surgery History of knee replacement Family History Father No problems noted. Mother No problems noted. Social History Household Members: Spouse Housing: House Do you presently have visiting nurse or other home services: No Alcohol intake: never Patient Tobacco Use Status: Never used Tobacco service: Yes Current occupational status: retired Review of Systems Const Denies chills and Denies fever(s) Card Reports no additional complaints and Denies syncope Resp Denies cough GI Denies abdominal pain and Denies heartburn Reports as per HPI and Denies change in libido Neuro Denies syncope Psych Denies change in libido Endo Denies change in libido Physical Exam Const General: cooperative, healthy appearing, comfortable and no acute distress Orientation/consciousness: patient oriented x3 HEENT Face and sinus: Yes normal facial exam Mouth: moist mucous membranes Neck Neck: Yes normal visual inspection, Yes full ROM and Yes trachea midline Chest Chest palpation & inspection: normal inspection of the chest Resp Effort & Inspection: normal respiratory effort, able to speak in complete sentences and no respiratory distress GI Inspection: Yes normal to inspection Back/Spine/Pelvis Cervical Spine: normal cervical lordosis Thoracic/Lumbar Spine: thoracic and lumbar spine normal to inspection Skin General skin exam: no rashes or lesions noted Neuro General: patient oriented x3, gait normal, tone normal and moves all extremities Extrem General: Yes normal to inspection and Yes capillary refill normal Assessment & Plan Assessment & Plan (1) Prostate cancer: Comment: June 2016 multiple core [place] 8 Code(s): C61 - Malignant neoplasm of prostate (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: Code(s): M81.8 - Other osteoporosis without current pathological fracture; T38.7X5A - Adverse effect of androgens and anabolic congeners, initial encounter Plan Four month follow-up Orders: Orders Prostate Specific Antigen 4 Months M81.8 - Other osteoporosis without current pathological fracture, T38.7X5A - Adverse effect of androgens and anabolic congeners, initial encounter Testosterone, Total 4 Months M81.8 - Other osteoporosis without current pathological fracture, T38.7X5A - Adverse effect of androgens and anabolic congeners, initial encounter XR DEXA axial skeleton 4 Months M81.8 - Other osteoporosis without current pathological fracture, M85.80 - Other specified disorders of bone density and structure, unspecified site, T38.7X5A - Adverse effect of androgens and anabolic congeners, initial encounter Patient Instructions: Imaging studies, laboratory and physical exam results were discussed and reviewed in detail. No major barriers to patient understanding were identified. An opportunity to ask questions regarding the treatment plan was provided. All questions were answered. The patient expressed understanding and agreement with the above treatment plan. The patient is aware they should contact our office by phone for worsening of their current condition or the appearance of new urologic symptoms. Compliance is encouraged with any medications and followup testing that is ordered. It is a privilege to participate in the urologic care of your patient. If you have any questions or concerns regarding treatment for the above conditions, or other urologic issues, please do not hesitate to contact me. The office telephone contact is [phone]. This note is constructed using voice recognition software. While every effort has been made to ensure accuracy online merchandiser errors may have been included. Yours sincerely, Dr Kole Castro MD, MICA [facility] - Urology Providers of Expert, Compassionate Care for the Genitourinary System Coding Level of Care Code Est Pt Level 4 (08557) Diagnoses Prostate cancer C61 Osteoporosis due to androgen therapy M81.8; T38.7X5A
== END 2023-07-15 13:40 | disposition home or self-care (01) ==
LOC: HO.HUSH 13:09
PROVIDERS: PCP Internal Medicine; Visit Provider Urology
DX: C61 Malignant neoplasm of prostate (principal); M81.8 Other osteoporosis without current pathological fracture; T38.7X5A Adverse effect of androgens and anabolic congeners, initial encounter
CPT/HCPCS: 99213

== ENCOUNTER → 2023-07-15 13:09 | Outpatient (BNVA) | payer MEDICARE, SELFPAY | PROVIDERS: PCP Internal Medicine; Visit Provider Urology | DX: C61 Malignant neoplasm of prostate (principal); M81.8 Other osteoporosis without current pathological fracture; T38.7X5A Adverse effect of androgens and anabolic congeners, initial encounter | CPT/HCPCS: 99212 ==

== ENCOUNTER 2023-09-20 08:58 | Outpatient (REF) | payer MEDICARE, SELFPAY ==
--- NOTE | ~2023-09-20 | MM_ITS ---
EXAMINATION: BONE DENSITOMETRY CLINICAL INDICATION: Osteopenia. COMPARISON: Baseline BD dated 09/15/2021. TECHNIQUE: Using a Enbase DXA System (software version: 13.1) manufactured by [employer], dual-energy x-ray absorptiometry was performed of the lumbar spine and left hip. The images are of good technical quality. Summary results are attached. FINDINGS: LEFT FEMUR, NECK: Current: BMD 0.707 g/cm2, Z-score -1.1, T-score -2.8, osteoporosis. Baseline: BMD 0.657 g/cm2. LEFT FEMUR, TOTAL: Current: BMD 0.695 g/cm2, Z-score -1.4, T-score -2.8, osteoporosis, 4.5% decrease from baseline (<5% change is not significant). Baseline: BMD 0.728 g/cm2. AP SPINE L1-L3 (excluding L4): The data of L1-L4 has been changed to exclude the L4 vertebral body, because degenerative sclerosis at this level may cause overestimation of lumbar spine density. Current: BMD 0.981 g/cm2, Z-score -1.2, T-score -1.9, osteopenia, 6.5% decrease from baseline (<5% change is not significant). Baseline: BMD 1.049 g/cm2. IDENTIFIED RISK FACTORS: Rheumatoid arthritis, glucocorticoids (chronic). HISTORY OF FRACTURE: None listed. MEDICATIONS: Vitamin D. MM/XR DEXA axial skeleton IMPRESSION: 1. DIAGNOSIS: Osteoporosis based on the lowest T-score value of -2.8 in the femur neck and total femur applying World Health Organization criteria. 2. 10-YEAR FRACTURE RISK PREDICTION, FRAX: According to the guidelines, FRAX calculation should only be performed on patients in the osteopenia bone density category. Therefore, FRAX was not performed on this patient. 3. Treatment Recommendations: NOF guidelines recommend consideration for treatment in postmenopausal women and men age 50 and older presenting with the following: -A hip or vertebral (clinical or morphometric) fracture. -T-score less than or equal to -2.5 at the femoral neck or spine after appropriate evaluation to exclude secondary causes. -Low bone mass at the hip or spine and a 10-year fracture probability by FRAX of greater than or equal to 3% for hip fracture or greater than or equal to 20% for major osteoporotic fracture based on the [place] adapted WHO algorithm. 4. Other Recommendations: All treatment decisions require clinical judgment and consideration of individual patient factors, including patient preferences, comorbidities, previous drug use, risk factors not captured in the FRAX model (e.g. frailty, falls, vitamin D deficiency, increased bone turnover, interval significant decline in bone density) and possible under or overestimation of fracture risk by FRAX. Additional medical evaluation for secondary cause of low bone mineral density may be appropriate. FUTURE SCAN RECOMMENDATION: People with diagnosed cases of osteoporosis or at high risk for fracture should have regular bone mineral density tests. For patients eligible for Medicare, routine testing is allowed once every 2 years. The testing frequency can be increased to one year for patients who have rapidly progressing disease, those who are receiving or discontinuing medical therapy to restore bone mass, or have additional risk factors.
== END 2023-09-20 08:59 | disposition home or self-care (01) ==
LOC: HO.MAMMO 08:58
PROVIDERS: PCP Internal Medicine; Visit Provider Urology
DX: M81.8 Other osteoporosis without current pathological fracture (principal); M85.80 Other specified disorders of bone density and structure, unspecified site; T38.7X5A Adverse effect of androgens and anabolic congeners, initial encounter
CPT/HCPCS: 77080

== ENCOUNTER 2023-11-02 02:32 | Emergency (ER) | payer MEDICARE, SELFPAY ==
--- NOTE | ~2023-11-02 | CT_ITS ---
EXAMINATION: CT SOFT TISSUE NECK WITH CONTRAST CLINICAL INFORMATION: New onset stridor and elevated white blood cell count. COMPARISON: Previous x-ray from earlier the same day. TECHNIQUE: Following the intravenous administration of 60 mL of Omnipaque 350 intravenous contrast, helical imaging was performed in the axial plane with generation of coronal and sagittal reformatted images. This CT examination was performed using dose optimization techniques as appropriate, variously including the following: *Automated exposure control *Adjustment of mA and/or kV according to patient size (this includes techniques or standardized protocols for targeted exams where dose is matched to indication/reason for exam; i.e. extremities or head) *Use of iterative reconstruction technique DLP: 439 mGy-cm FINDINGS: No definite abscess, fluid collection, foreign body or abnormal air collection is seen. There is question prominent soft tissue seen in the supraglottic neck posteriorly anterior to the C5 vertebral body just superior to the cricoid and arytenoid cartilage and posterior to the aryepiglottic folds, right greater than left, for example axial image 94 series 2. Aryepiglottic folds do not appear thickened. Piriform sinuses appear symmetric. The epiglottis is normal. The vocal cords appear normal. There is increased AP dimension of the trachea questionable for a saber-sheath trachea or COPD. Artifact from dental hardware. The nasopharynx and oropharynx are normal. Visualized intracranial structures are normal. The visualized orbits, paranasal sinuses, mastoid air cells and middle ears are clear. Temporomandibular joints are normal. Salivary glands are normal. The thyroid gland is normal. No enlarged lymph nodes are seen. There is mild bilateral carotid calcification. Visualized lung apices are clear. There are degenerative changes of the cervical spine and shoulders. CT/CT soft tissue neck w IV con IMPRESSION: No definite abscess seen. Question prominent soft tissue in the supraglottic neck anterior to the C5 vertebral body, right greater than left. 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
--- NOTE | ~2023-11-02 | XR_ITS ---
EXAMINATION: XR SOFT TISSUE NECK CLINICAL INDICATION: Respiratory stridor. COMPARISON: None available. TECHNIQUE: 2 views of the soft tissue neck were obtained. FINDINGS: Soft tissue films of the neck demonstrate a normal larynx, pharynx and upper trachea. No soft tissue swelling or opaque foreign body is demonstrated. There appears to be a mid to upper thoracic compression fracture. XR/XR soft tissue neck IMPRESSION: 1. Unremarkable examination of the soft tissues of the neck. 2. Mid to upper thoracic compression fracture.
--- NOTE | 2023-11-02 02:38 | ECG_ITS ---
Test Reason : SOB Blood Pressure : / mmHG Vent. Rate : 114 BPM Atrial Rate : 000 BPM P-R Int : 000 ms QRS Dur : 076 ms QT Int : 334 ms P-R-T Axes : 000 -44 -17 degrees QTc Int : 460 ms Poor data quality Atrial fibrillation with rapid ventricular response with premature ventricular or aberrantly conducted complexes Left axis deviation Low voltage QRS Inferior infarct , age undetermined Cannot rule out Anterior infarct (cited on or before 24-AUG-2022) Abnormal ECG When compared with ECG of 24-AUG-2022 13:10, Poor data quality in current ECG precludes serial comparison Referred By: Marysol Sampson Electronically Signed By:ANETTE MÁRQUEZ MD
[2023-11-02 02:41] VITALS: BP 141/92; BP 147/88; PULSE 114; PULSE 95; RESP 25; TEMP 36.6; O2SAT 95; O2SAT 97; BMI 32.3
[2023-11-02] MEDS: diphenhydrAMINE HCL 50 MG/ML VIAL 25 MG IVPUSH (02:46)
--- NOTE | 2023-11-02 02:48 | ED.SOB ---
HPI - SOB/Dyspnea General Chief Complaint: Dyspnea Stated Complaint: chf Time Seen by Provider: 11/02/23 02:37 Source: patient Mode of arrival: EMS History of Present Illness HPI Narrative: 88-year-old male called EMS and states that he has had this same breathing problem for the past 3 days and denies any recent changes in medications/allergies to medications and denies any allergies to food items and states he has been unable to sleep at night due to his breathing and finally tonight he states that he could not take it any longer. EMS states that they found him oxygenating 100% but treated him EN route for possible CHF exacerbation. Related Data Home Medications ?Medication ?Instructions ?Recorded ?Confirmed aspirin 81 mg tablet,delayed 81 mg PO DAILY 08/24/22 07/15/23 release bumetanide 0.5 mg tablet 0.5 mg PO DAILY 08/24/22 07/15/23 doxycycline hyclate 100 mg capsule 100 mg PO BID 08/24/22 07/15/23 silver sulfadiazine 1 % topical 1 appl topical DAILY 08/24/22 07/15/23 cream Previous Rx's ?Medication ?Instructions ?Recorded calcium citrate 315 mg 2 tab PO DAILY 90 days #180 tabs 12/07/22 calcium-vitamin D3 6.25 mcg (250 unit) tablet (Citracal + Vitamin D Maximum) Allergies Allergy/AdvReac Type Severity Reaction Status Date / Time No Known Allergies Allergy Verified 11/02/23 02:50 [No Known Allergies*] Review of Systems Review of Systems: Pertinent positives and negatives as stated in HPI PMFSH Past Medical History Source: nursing notes reviewed Medical History Recurrent falls Essential hypertension Urethral stricture Prostate cancer Elevated blood pressure reading Hx of bladder cancer Basal cell carcinoma Skin lesion of back Surgical History History of surgery History of knee replacement Family History Family History Father No problems noted. Mother No problems noted. Social History Social History Household Members: Spouse Housing: House Do you presently have visiting nurse or other home services: No Alcohol intake: never Patient Tobacco Use Status: Never used Tobacco Smoked in Last 30 Days: No Use of substances other than those prescribed or required for medical reasons: No Advance Directives: No Advance Directives Information Provided: Yes Do you have a plan to hurt others: No Plan service: Yes Current occupational status: retired Physical Exam Vital Signs: Vital Signs: Last Vital Signs Temp 98.2 F 11/02/23 05:06 Pulse 97 11/02/23 05:06 Resp 24 H 11/02/23 05:06 BP 132/78 11/02/23 05:06 Pulse Ox 95 11/02/23 05:06 O2 Del Method Room Air 11/02/23 05:06 BMI result Body Mass Index 32.3 VITAL SIGNS: Reviewed. GENERAL: Well developed, well nourished, in no acute distress. HEAD: Normocephalic/atraumatic EYES: PERRLA, EOMI EARS: Ext canals without abnormality NOSE: Nares patent bilateral OROPHARYNX: no oral lesions noted, posterior pharynx clear NECK: Supple, no adenopathy LUNGS: Inspiratory stridor, no bibasilar rales appreciated or expiratory wheeze, tachypnea is present. SpO2<98> CARDIOVASCULAR: Regular rate and rhythm without noted murmurs, no JVD or lower extremity edema. ABDOMEN: Soft, non-tender, non-distended with bowel sounds. MUSCULOSKELETAL: No tenderness, deformities, or effusions noted on gross inspection. EXTREMITIES: No cyanosis, clubbing or edema. SKIN: Inspection of the skin reveals no rashes NEUROLOGIC: Alert and oriented x 4. Strength and sensation to light touch were grossly intact x 4. Medications Administered Discontinued Medications Generic Name Dose Route Start Last Admin Trade Name Asim PRN Reason Stop Dose Admin Dexamethasone Sodium Phosphate 10 mg 11/02/23 03:33 11/02/23 03:39 Dexamethasone Sod Phosphate 10 Mg/Ml Vial IVPUSH 11/02/23 03:34 10 mg ONCE ONE Administration Diphenhydramine HCl 25 mg 11/02/23 02:46 11/02/23 02:46 Diphenhydramine Hcl 50 Mg/Ml Vial IVPUSH 11/02/23 02:47 25 mg ONCE ONE Administration Epinephrine 0.5 ml 11/02/23 02:46 11/02/23 02:51 Racepinephrine Hcl 0.5 Ml Vial.Neb INHALE 11/02/23 02:47 0.5 ml ONCE ONE Administration Medical Decision Making Medical Decision Making [facility] Narrative: 88-year-old male with history and clinical presentation of unexplained inspiratory stridor, he does not appear ill and is oxygenating well and on quick visualization of the posterior pharynx there is nothing obvious and patient denied having choked on any food items or feeling as though the back of his throat is swollen. INTERVENTION: Racemic epi, Benadryl 25 mg, 10 mg Decadron I reviewed all investigations and hematologic indices reflect provided steroids, patient is afebrile up no anemia or thrombocytopenia. Coagulation studies are within normal limits. Chemistry indices negative for KRYSTAL or electrolyte/acute liver enzyme changes. Patient has chronic detectable high sensitivity troponin. Viral testing negative for COVID-19/influenza. Lateral neck x-ray with unremarkable findings. Patient has had no significant improvement with racemic epi/Benadryl/Decadron and no evidence to suggest angioedema or anaphylaxis or acute epiglottitis as there is no muffled voice sounds. Differential Diagnosis Differential Diagnoses: The differential diagnosis associated with the presentation includes Please see the discussion above Admission/Observation Consideration of admission/observation: Escalation of care including admission/observation considered Please see the discussion above Lab Data [facility] Lab Attestation statement: I reviewed the patient's lab results. Please see discussion above 11/02/23 02:54 11/02/23 02:54 Labs: Lab Results 11/02/23 11/02/23 Range/Units 02:54 02:55 WBC 17.9 H (4.8-10.8) X10*3/uL RBC 4.78 (4.60-5.80) X10*6/uL Hgb 14.1 (14.0-18.0) g/dl Hct 42.1 (42.0-52.0) % MCV 88.1 (80.0-98.0) fL MCH 29.5 (27.0-33.0) pg MCHC 33.5 (31.0-36.0) g/dl RDW 12.5 (11.0-16.0) % Plt Count 284 (160-400) X10*3/uL MPV 8.6 L (9.4-12.4) fL Immature Gran % (Auto) 0.7 H (0.0-0.4) % Neut % (Auto) 82.3 H (45-73) % Lymph % (Auto) 8.5 L (20-40) % [place] % (Auto) 8.1 (2-11) % Eos % (Auto) 0.2 (0-4) % Baso % (Auto) 0.2 (0-2) % Lymph # (Auto) 1.5 (1.2-4.9) X10*3/uL [place] # (Auto) 1.5 H (0.1-1.2) X10*3/uL Eos # (Auto) 0.0 (0.0-0.4) X10*3/uL Baso # (Auto) 0.0 (0.0-0.2) X10*3/uL Abs Immat Gran (auto) 0.12 H (0.00-0.03) X10*3/uL Absolute Neuts (auto) 14.7 H (2.0-8.3) x10*3/uL Absolute Nucleated RBC 0.000 (0.0-0.012) X10*3/uL Nucleated RBC % (auto) 0.0 (0.0-0.2) /100WBC PT 12.7 (11.1-13.3) SEC INR 1.0 (0.9-1.1) Sodium 136 (135-145) mmol/L Potassium 4.0 (3.3-5.1) mmol/L Chloride 97 (96-108) mmol/L Carbon Dioxide 27 (22-29) mmol/L Anion Gap 16 (12-20) BUN 22 H (9-16) mg/dL Creatinine 0.77 (0.5-1.4) mg/dL Estim Creat Clear Calc 69.9 Estimated GFR > 60 Random Glucose 182 H (60-115) mg/dL Calcium 9.2 (8.4-10.2) mg/dL Total Bilirubin 1.3 H (0.0-1.0) mg/dL AST 20 (5-37) U/L ALT 12 (0-40) U/L Alkaline Phosphatase 75 (39-117) U/L Troponin I High Sens 14.9 D (<3.5-35.0) ng/L B-Natriuretic Peptide 135 H (<100) pg/mL Total Protein 7.6 (6.5-8.0) g/dL Albumin 3.6 (3.5-5.0) g/dL COVID-19 ([place]) Negative (Negative) COVID-19 Clin Com See Note Influenza Type A ([place]) Negative (Negative) Influenza Type B ([place]) Negative (Negative) Influenza A & B Note See Note Independent Interpretation I performed an independent interpretation of an: EKG Interpretation: Atrial fibrillation with RVR, HR-114, no STEMI, QRS/QTC is within normal limits Radiology Impression Discussion of test interpretation with radiology: I have reviewed the radiologist's reading. Radiologist Impression: Please see the discussion above External Record Review External record reviewed: Outpatient record, Prior outpatient labs and Prior outpatient radiology Critical Care Time Critical Care Time Critical Care Time: Yes Total Critical Care Time: 45 Attestation: I personally attest to this time spent taking care of the patient. Discharge Plan Discharge Clinical Impression: Inspiratory stridor, Vocal cord dysfunction Patient Disposition: Home, Self-Care Instructions: Laryngoscopy (DC) Additional Instructions: 1. You will follow-up with Dr. Mcgrath for evaluation of your vocal cords that are suspected to be causing the stridor that you are experiencing. Prescriptions: No Action silver sulfadiazine 1 % cream 1 appl TOPICAL DAILY doxycycline hyclate 100 mg capsule 100 mg PO BID aspirin 81 mg Tablet,Delayed Release (Dr/Ec) 81 mg PO DAILY bumetanide 0.5 mg tablet 0.5 mg PO DAILY calcium citrate-vitamin D3 [Citracal + D Maximum] 315 mg-6.25 mcg (250 unit) tablet 2 tab PO DAILY 90 Days Qty: 180 1RF Referrals: Harry Mcgrath [Physician] - Print Language: Maltese
[2023-11-02] MEDS: Racepinephrine HCL 0.5 ML VIAL.NEB INHALE ×2 (02:51→08:11)
[2023-11-02 02:52] VITALS: PULSE 100; RESP 24; O2SAT 92
[2023-11-02 03:01] LABS: MANUAL DIFF FLAG NO
[2023-11-02 03:02] LABS: Basophils Percent Auto 0.2 % (0-2); Eosinophils Percent Auto 0.2 % (0-4); Hematocrit 42.1 % (42.0-52.0); Hemoglobin 14.1 g/dl (14.0-18.0); Imm Gran Abs Auto 0.12 X10*3/uL (0.00-0.03); Imm Gran Pct Auto 0.7 % (0.0-0.4); Lymphocytes Absolute Auto 1.5 X10*3/uL (1.2-4.9); Lymphocytes Percent Auto 8.5 % (20-40); Mean Corpuscular HGB Conc 33.5 g/dl (31.0-36.0); Mean Corpuscular Hemoglobin 29.5 pg (27.0-33.0); Mean Corpuscular Volume 88.1 fL (80.0-98.0); Mean Platelet Volume 8.6 fL (9.4-12.4); Monocytes Absolute Auto 1.5 X10*3/uL (0.1-1.2); Monocytes Percent Auto 8.1 % (2-11); Neutrophils Absolute Auto 14.7 x10*3/uL (2.0-8.3); Neutrophils Percent Auto 82.3 % (45-73); Platelet Count 284 X10*3/uL (160-400); Red Blood Count 4.78 X10*6/uL (4.60-5.80); Red Cell Distribution Width 12.5 % (11.0-16.0); White Blood Count 17.9 X10*3/uL (4.8-10.8)
[2023-11-02 03:07] LABS: Prothrombin Time 12.7 SEC (11.1-13.3)
--- NOTE | 2023-11-02 03:08 | PC.NURSE ---
pt biba from home, a&ox4, respirations even but labored, pt placed on CPAP by ems prior to arrival, pt sating 95% on cpap. pt removed from CPAP on arrival to the ED, pt continued to sat 93-97% on room air. pt noted to have upper respiratory stridor which pt states has been continuous x3 days. pt denies pain at this time. respiratory and at bedside, pt medicated per sep. pt given treatment. pt has 2 20G iv bilateral AC. pt sinus tachy on tele 105-108bpm.
[2023-11-02 03:18] LABS: Alanine Aminotransferase 12 U/L (0-40); Albumin Level 3.6 g/dL (3.5-5.0); Alkaline Phosphatase 75 U/L (39-117); Anion Gap 16 (12-20); Aspartate Amino Transferase 20 U/L (5-37); Bilirubin Total 1.3 mg/dL (0.0-1.0); Blood Urea Nitrogen 22 mg/dL (9-16); Calcium 9.2 mg/dL (8.4-10.2); Carbon Dioxide 27 mmol/L (22-29); Chloride 97 mmol/L (96-108); Creatinine Clr Calc Pharmacy 69.9; Estimated Glomerular Filt Rate > 60; Glucose Random 182 mg/dL (60-115); Sodium 136 mmol/L (135-145); Total Protein 7.6 g/dL (6.5-8.0)
[2023-11-02 03:24] LABS: B Type Natriuretic Peptide 135 pg/mL (<100); Troponin-I High Sensitivity 14.9 ng/L (<3.5-35.0)
[2023-11-02] MEDS: dexAMETHasone sod phosphate 10 MG/ML VIAL IVPUSH (03:39)
[2023-11-02 04:22] LABS: IDNOW Serial# 152EDE1D; Influenza A Negative (Negative); Influenza B2 Negative (Negative)
[2023-11-02 04:22] LABS: COVID-19 Test Negative (Negative); IDNOW Serial# 08D9AD1C
[2023-11-02 05:06] VITALS: BP 132/78; PULSE 97; RESP 24; TEMP 36.8; O2SAT 95
--- NOTE | 2023-11-02 07:52 | ECG_ITS ---
Test Reason : BRADYCARDIA Blood Pressure : / mmHG Vent. Rate : 109 BPM Atrial Rate : 000 BPM P-R Int : 000 ms QRS Dur : 084 ms QT Int : 296 ms P-R-T Axes : 000 -39 -31 degrees QTc Int : 398 ms Atrial fibrillation with rapid ventricular response with premature ventricular or aberrantly conducted complexes Left axis deviation Low voltage QRS Cannot rule out Anteroseptal infarct (cited on or before 24-AUG-2022) Abnormal ECG When compared with ECG of 02-NOV-2023 02:56, Questionable change in initial forces of Septal leads Nonspecific T wave abnormality now evident in Anterolateral leads Referred By: Dulce Gudino Electronically Signed By:ANETTE MÁRQUEZ MD
--- NOTE | 2023-11-02 07:57 | PC.NURSE ---
pt kaitlin down to 31 bpm, repeat EKG obtained, MD Eisenberg made aware
[2023-11-02] MEDS: iohexoL 350 MG/ML 100 ML INFUS..BTL IV (08:11)
[2023-11-02 08:12] VITALS: PULSE 102; RESP 29; O2SAT 94
[2023-11-02 08:25] VITALS: BP 122/71; PULSE 100; RESP 25; TEMP 36.3; O2SAT 95
[2023-11-02 10:32] VITALS: BP 122/71; PULSE 100; RESP 25; TEMP 36.3; O2SAT 95
== END 2023-11-02 10:57 | disposition short-term general hospital (02) ==
PROVIDERS: Student in an Organized Health Care Education/Training Program; Emergency Provider Emergency Medicine
DX: R06.1 Stridor (principal); J38.3 Other diseases of vocal cords; D72.829 Elevated white blood cell count, unspecified; I10 Essential (primary) hypertension; Z11.52 Encounter for screening for COVID-19
CPT/HCPCS: 36415; 70360; 70491; 80053; 83880; 84484; 85025; 85610; 87502; 87635; 93005; 94640; 96374; 96375; 99285; J1100; J1200; Q9967

== ENCOUNTER → 2023-11-02 02:38 | Outpatient (BNV) | payer MEDICARE, SELFPAY | PROVIDERS: Emergency Provider Emergency Medicine; Visit Provider Internal Medicine Cardiovascular Disease | DX: I48.91 Unspecified atrial fibrillation (principal) | CPT/HCPCS: 93010 ==